=== PATIENT | female | born 1950 | race Caucasian/White ===

== ENCOUNTER 2018-06-07 14:02 | Emergency (ER) | payer MEDICARE ==
[~2018-06-07 14:02] MED LIST: ISOVUE-370 76%-LOCM 1 ML ONE
[2018-06-07] MEDS ORDERED: Morphine 4 MG/ML VIAL ONE ×2 (14:40→15:54)
[2018-06-07] MEDS ORDERED: Ondansetron PF 4 MG/2 ML Vial ONE ×2 (14:41→15:54)
[2018-06-07 14:57] LABS: #Basophils 0.1 thou/uL (0.0-0.2); #Eosinphils 0.1 thou/uL (0.0-0.7); #Monocytes 0.6 thou/uL (0.11-0.59); #Neutrophils 11.5 thou/uL (1.40-6.50); %Basophils 0.4 % (0.0-1.0); %Eosinophils 0.5 % (0.0-10.0); %Lymphocytes 7.4 % (21.0-51.0); %Monocytes 4.1 % (0.0-10.0); %Neutrophils 87.5 % (42.0-75.0); Hemoglobin 15.3 g/dL (12.0-16.0); Mean Corpuscular HGB CONC 34.2 g/dL (32.0-36.0); Mean Corpuscular Hemoglobin 32.6 pg (27.0-31.0); Mean Corpuscular Volume 95.3 fL (78.0-98.0); Mean Platelet Volume 7.2 fL (7.4-10.4); Platelet Count 335 thou/uL (130-400); RBC Distribution Width 11.6 % (11.5-14.5); White Blood Cell (WBC) Count 13.2 thou/uL (4.8-10.8)
[2018-06-07 15:15] LABS: ALT (SGPT) 21 U/L (8-55); AST (SGOT) 29 U/L (5-34); Albumin 4.9 g/dL (3.4-4.8); Alkaline Phosphatase 99 U/L (40-150); Anion Gap 16 mmol/L (10-20); BUN (Urea Nitrogen) 17 mg/dL (9.8-20.1); Bilirubin, Total 0.8 mg/dL (0.2-1.2); Calc. Creatinine Clearance 0 mL/min (70-130); Calcium 9.9 mg/dL (7.8-10.44); Carbon Dioxide 26 mmol/L (23-31); Chloride 95 mmol/L (98-107); Estimated GFR-MDRD 61; Globulin 2.6 g/dL (2.4-3.5); Glucose 183 mg/dL (80-115); Lipase 23 U/L (8-78); Potassium 3.2 mmol/L (3.5-5.1); Protein, Total 7.5 g/dL (6.0-8.3); Sodium 134 mmol/L (136-145)
--- NOTE | 2018-06-07 15:48 | CT ---
FContrast-enhanced CT images abdomen and pelvis. HISTORY: Epigastric pain with history of colitis. The lung bases are unremarkable. No evidence of free intraperitoneal air seen. The liver and spleen are unremarkable. The gallbladder and pancreas unremarkable. Adrenal glands unremarkable. Cortical cyst seen in the right kidney. No dilated loops of small bowel seen. No evidence of periaortic lymphadenopathy seen. The celiac artery, superior mesenteric artery, inferior mesenteric artery as well as splenic veins an d superior mesenteric veins are patent. A moderate size hiatal hernia is present. Levoscoliosis is present in the lumbar spine. Multilevel lumbar facet degenerative changes and mid and lower lumbar spinal stenosis seen. Colonic diverticulosis is present. There is some mucosal thickening of the transverse and descending colon compatible with changes of colitis. IMPRESSION: hiatal hernia.
[2018-06-07 16:36] LABS: Bilirubin Negative (Negative); Blood, Urine Negative (Negative); Clarity CLEAR (Clear); Glucose, Urine (Dipstick) 250 mg/dL (Negative); Leukocyte Negative (Negative); Nitrite Negative (Negative); Protein, Urine (Dipstick) Trace mg/dL (Neg-Trace); Specific Gravity, Urine 1.018 (1.002-1.036); Urobilinogen 0.2 mg/dL (0.2-1.0)
[2018-06-07 17:13] LABS: Bacteria/HPF None Seen HPF (None Seen); Hyaline Casts/LPF NONE SEEN LPF (0-3 Hyaline); RBC/HPF None Seen HPF (0-3); Squamous Epithelial 0-3 HPF (0-3); WBC/HPF None Seen HPF (0-3)
[2018-06-07] MEDS ORDERED: Ketorolac Tromethamine 30 MG/ML VIAL ONE (17:49)
[2018-06-07] MEDS ORDERED: Ondansetron ODT 4 MG TAB ONE (18:16)
== END 2018-06-07 18:16 | disposition home or self-care (01) ==
LOC: ERS 14:02
DX: K52.9 Noninfective gastroenteritis and colitis, unspecified (principal); I10 Essential (primary) hypertension; F32.9 Major depressive disorder, single episode, unspecified; Z79.899 Other long term (current) drug therapy
CPT/HCPCS: 74177; 80053; 81001; 83690; 84484; 85025; 93005; 96361; 96374; 96375; 96376; J1885; J2270; J2405; Q0162; Q9966

== ENCOUNTER 2018-08-21 16:21 | Inpatient (IN) | payer MEDICARE ==
[2018-08-21 16:46] LABS: Bilirubin Negative (Negative); Blood, Urine Negative (Negative); Clarity CLEAR (Clear); Glucose, Urine (Dipstick) Negative (Negative); Leukocyte Negative (Negative); Nitrite Negative (Negative); Protein, Urine (Dipstick) 100 mg/dL (Neg-Trace); Specific Gravity, Urine 1.015 (1.002-1.036); Urobilinogen 0.2 mg/dL (0.2-1.0); pH, Urine 6.5 (5.0-9.0)
[2018-08-21 16:49] LABS: Bacteria/HPF None Seen HPF (None Seen); Hyaline Casts/LPF 0-3 HYALINE CAST LPF (0-3 Hyaline); Squamous Epithelial 0-3 HPF (0-3); WBC/HPF 0-3 HPF (0-3)
[2018-08-21] MEDS ORDERED: Morphine 4 MG/ML VIAL ONE (17:25)
[2018-08-21] MEDS ORDERED: Ondansetron PF 4 MG/2 ML Vial ONE (17:25)
[2018-08-21] MEDS ORDERED: Labetalol HCl 100 MG/20 ML VIAL ONE ×2 (17:35→20:16)
[2018-08-21] MEDS ORDERED: Metoclopramide HCl 10 MG/2 ML VIAL ONE (17:35)
[2018-08-21 17:40] LABS: #Basophils 0.1 thou/uL (0.0-0.2); #Eosinphils 0.6 thou/uL (0.0-0.7); #Monocytes 0.8 thou/uL (0.11-0.59); #Neutrophils 10.5 thou/uL (1.40-6.50); %Basophils 0.8 % (0.0-1.0); %Eosinophils 4.5 % (0.0-10.0); %Lymphocytes 14.2 % (21.0-51.0); %Monocytes 5.5 % (0.0-10.0); Hemoglobin 15.9 g/dL (12.0-16.0); Mean Corpuscular HGB CONC 33.5 g/dL (32.0-36.0); Mean Corpuscular Hemoglobin 31.8 pg (27.0-31.0); Mean Corpuscular Volume 94.8 fL (78.0-98.0); Mean Platelet Volume 9.3 fL (7.4-10.4); Platelet Count 257 thou/uL (130-400); RBC Distribution Width 12.3 % (11.5-14.5); Red Blood Cell (RBC) Count 5.01 mill/uL (4.20-5.40)
[2018-08-21] MEDS ORDERED: Nitroglycerin 2% Ointment 1 INCH/1 GM Packet ONE (18:40)
[2018-08-21] MEDS ORDERED: Promethazine HCl 25 MG/ML VIAL ONE (18:40)
[2018-08-21 19:31] LABS: ALT (SGPT) 26 U/L (8-55); AST (SGOT) 34 U/L (5-34); Albumin 4.7 g/dL (3.4-4.8); Alkaline Phosphatase 100 U/L (40-150); Anion Gap 13 mmol/L (10-20); BUN (Urea Nitrogen) 13 mg/dL (9.8-20.1); Bilirubin, Total 0.5 mg/dL (0.2-1.2); Calc. Creatinine Clearance 0 mL/min (70-130); Calcium 9.5 mg/dL (7.8-10.44); Carbon Dioxide 24 mmol/L (23-31); Chloride 105 mmol/L (98-107); Estimated GFR-MDRD 70; Globulin 2.8 g/dL (2.4-3.5); Glucose 142 mg/dL (80-115); Lipase 23 U/L (8-78); Potassium 3.3 mmol/L (3.5-5.1); Protein, Total 7.5 g/dL (6.0-8.3); Sodium 139 mmol/L (136-145)
--- NOTE | 2018-08-21 20:12 | CT ---
CT ANGIO OF CHEST PERFORMED WITH INTRAVENOUS CONTRAST ENHANCEMENT WITH 3D RECONSTRUCTIONS: 08/21/18 HISTORY: Shortness of breath. Patient has been previously diagnosed with colitis. COMPARISON: CT angio of the chest of 08/27/[address] of the abdomen and pelvis dated 06/26/18. The lungs are clear of any infiltrative process. No pulmonary nodules or pleural effusions identified . Thoracic aorta is normal in caliber. There is good pulmonary artery opacification and no CT evidence for pulmonary embolus. There is a hiatal hernia demonstrated. Stomach is distended with fluid. Hypodensity involving the upp er pole of the right kidney compatible with a cyst. Visualized portions of the colon is not distended . Incidental note is made of bilateral breast implant ruptures. IMPRESSION: No CT evidence for pulmonary embolus. POS: [facility]
[2018-08-21] MEDS ORDERED: Sodium Chloride 0.9% 1,000 ML IV SCH (22:30)
[2018-08-21] MEDS ORDERED: Lisinopril 20 MG TAB PO SCH (23:30)
[2018-08-21] MEDS: hydrALAZINE 20 MG/ML VIAL SLOW IVP PRN (23:46)
[2018-08-22] MEDS: NS 0.9% w/ 20 MEQ KCL 1,000 ML/1,000 ML BAG IV SCH ×2 (00:08→13:02)
[2018-08-22] MEDS: Ondansetron PF 4 MG/2 ML Vial IVP PRN (00:55)
[2018-08-22 01:07] LABS: Troponin I 0.016 ng/mL (< 0.028)
[2018-08-22] MEDS ORDERED: Amlodipine 10 MG TAB PO SCH (01:30)
--- NOTE | 2018-08-22 02:23 | HP ---
CHIEF COMPLAINT: Nausea and vomiting. HISTORY OF PRESENT ILLNESS: The patient is 67-year-old female with a history of hypertension, who presents to the hospital with complaints of nausea and vomiting x1 day. The patient stated that she was in her normal state of health. However, after picking up her from the hospital, she went to [facility] and had 2 tacos and about 40 minutes later, started having significant bouts of nausea and vomiting. The patient also complained of abdominal pain. Denies any diarrhea. The patient states that this has happened to her in the past and that has caused her to have multiple hospital admissions. The patient stated that her last admission was in June for the similar reasons. The patient denies any fevers or chills. The patient states that she normally goes to the bathroom on a regular basis; however, for the past few weeks, she has not been very regular. The patient has never followed up with a senior manager asset protection and has been told that she possibly might have irritable bowel syndrome by her primary. PAST MEDICAL HISTORY: As of the following; 1. Hypertension. 2. She also has dyslipidemia and she has not taken her antihypertensives for the past couple of weeks. PAST SURGICAL HISTORY: She has had a history of breast augmentation and rhinoplasty. She has also had a rupture of the right breast implant. FAMILY HISTORY: Significant for father from [place] at age of 53. Sister at 68 from heart disease. SOCIAL HISTORY: She denies any alcohol use, tobacco use, smoking history. She is a full code. Lives with her . ALLERGIES: SHE HAS NO KNOWN DRUG ALLERGIES. MEDICATIONS: She takes lisinopril 20 mg daily. REVIEW OF SYSTEMS: All negative except the ones mentioned above in the HPI. PHYSICAL EXAMINATION: VITAL SIGNS: As of the following; temperature 97.7, heart rate 66, blood pressure of 195/93, respirations 16, oxygen saturation 97% on room air. GENERAL: She is awake, alert, and oriented x3. Does not appear in any distress. CV: S1 and S2 present. No murmurs, rubs, or gallops. HEENT: Normocephalic, atraumatic. No lymphadenopathy noted. Pupils are equal and reactive to light. LUNGS: Clear to auscultation. No rhonchi or wheezes noted. ABDOMEN: Soft. Bowel sounds are present x2. Mild pain upon palpation all over the abdominal area. EXTREMITIES: No edema. Pedal pulses are present x2. NEUROVASCULAR: No focal deficits noted. SKIN: No cuts, lesions, or bruises noted. LABORATORY RESULTS: WBCs of 14.0, hemoglobin of 15.9, hematocrit of 47.5, platelets of 257. Chemistry; sodium of 139, potassium of 3.3, BUN of 13, creatinine of 0.82, glucose of 142. Her troponin x3 were negative. Lipase was normal at 23. She did undergo a CTA which did not indicate any pulmonary embolism. She recently had a CT of abdomen and pelvis in June of 2018, which just indicated hiatal hernia and hepatic and renal cysts and no appendicitis, and she has an ovarian cyst, and no calcified gall gallstones were seen at that exam. ASSESSMENT AND PLAN: The patient is a very pleasant 67-year-old female who presents to the hospital, complains of abdominal pain, nausea, and vomiting. 1. Nausea, vomiting, and abdominal pain. Could be secondary to possible food related since she recently had [place] and started having these symptoms after. Her lipase is completely normal, could not be pancreatitis. I will go ahead and get a right upper quadrant ultrasound for further evaluation of her gallbladder. I will also put her on some Pepcid. The patient has abdominal pain all over. She would benefit from a GI followup as an outpatient versus if her symptoms do not improve, she may require endoscopy while in-house. Her CTA was negative for any pulmonary embolism. 2. Hypertension, uncontrolled. We will start the patient on p.r.n. and also I will start her back on her home dose of medications. 3. Deep venous thrombosis prophylaxis. We will put the patient on some sequential compression devices. 4. Hypokalemia. We will replace the potassium. Job ID: [id number]
[2018-08-22] MEDS ORDERED: Nitroglycerin 0.4 MG TAB (25 Tab Bottle) SL SCH (03:45)
[2018-08-22 05:23] LABS: #Lymphocytes 0.5 thou/uL (1.20-3.40); #Monocytes 0.4 thou/uL (0.11-0.59); #Neutrophils 13.4 thou/uL (1.40-6.50); %Basophils 0.1 % (0.0-1.0); %Eosinophils 0.3 % (0.0-10.0); %Lymphocytes 3.6 % (21.0-51.0); Hemoglobin 15.3 g/dL (12.0-16.0); Mean Corpuscular HGB CONC 32.8 g/dL (32.0-36.0); Mean Corpuscular Hemoglobin 31.7 pg (27.0-31.0); Mean Corpuscular Volume 96.8 fL (78.0-98.0); Mean Platelet Volume 9.6 fL (7.4-10.4); Platelet Count 255 thou/uL (130-400); RBC Distribution Width 12.3 % (11.5-14.5); Red Blood Cell (RBC) Count 4.83 mill/uL (4.20-5.40); White Blood Cell (WBC) Count 14.4 thou/uL (4.8-10.8)
[2018-08-22] MEDS: hydrALAZINE 20 MG/ML VIAL SLOW IVP PRN ×2 (05:27→19:59)
[2018-08-22 05:43] LABS: Hemoglobin A1c 5.5 % (4.0-6.0)
[2018-08-22 05:49] LABS: Anion Gap 15 mmol/L (10-20); BUN (Urea Nitrogen) 14 mg/dL (9.8-20.1); Calc. Creatinine Clearance 0 mL/min (70-130); Calcium 9.9 mg/dL (7.8-10.44); Carbon Dioxide 21 mmol/L (23-31); Chloride 104 mmol/L (98-107); Estimated GFR-MDRD 70; Glucose 201 mg/dL (80-115); Potassium 3.5 mmol/L (3.5-5.1); Sodium 136 mmol/L (136-145)
--- NOTE | 2018-08-22 07:02 | ULT ---
GALLBLADDER ULTRASOUND: INDICATIONS: Nausea. Vomiting. FINDINGS: Small hypoechoic focus within the hepatic parenchyma is present, less than 1 cm, too small to definit ively characterize. There is an exophytic cyst of the adjacent right kidney. No acute gallbladder pathology. Roque sign is reported as negative. The common duct is nondilated, visualized at 3 mm. IMPRESSION: No acute gallbladder pathology. POS: [facility]
[2018-08-22] MEDS: Heparin 5,000 UNITS/ML VIAL SC SCH ×3 (08:45→20:00)
[2018-08-22] MEDS: Lisinopril 20 MG TAB PO SCH (08:45)
[2018-08-22] MEDS: Mag-Al 1200 mg/1200 mg/30 ML UDCUP PO PRN ×3 (08:50→19:58)
[2018-08-22] MEDS ORDERED: Lisinopril 20 MG TAB PO SCH (09:00)
[2018-08-22] MEDS ORDERED: Amlodipine 5 MG TAB PO SCH (10:00)
[2018-08-22] MEDS ORDERED: Metoprolol Tartrate 25 MG TAB PO SCH (10:30)
[2018-08-22 10:35] LABS: Iron 108 ug/dL (50-170); Iron Binding Capacity, Total 390 mcg/dL (265-497)
[2018-08-22 10:43] LABS: Amphetamine Not Detected (NotDetected); Barbiturates Screen Not Detected (NotDetected); Benzodiazepine Screen Not Detected (NotDetected); Cocaine Metabolite Screen Not Detected (NotDetected); Medtox Control Line Valid? VALID (VALID); Medtox Reader # READER 4; Methadone Not Detected (NotDetected); Methamphetamine Not Detected (NotDetected); Opiate Screen Not Detected (NotDetected); Oxycodone Screen Not Detected (NotDetected); Phencyclidine (PCP) Not Detected (NotDetected); THC/Cannabinoid Screen Detected (NotDetected); Tricyclic Screen Not Detected (NotDetected)
--- NOTE | 2018-08-22 13:38 | PDOC.PN ---
- Subjective Encounter Start Date: 08/22/18 Encounter Start Time: 09:00 Subjective: Patient examined, denies current abdominal pain, does reports some -: nausea. Denies any vomiting since yesterday. Reports diffuse intermittent -: abdominal pain for several months. - Objective Resuscitation Status - Order Detail: 08/21/18 21:49 Resuscitation Status Routine Resuscitation Status: FULL: Full Resuscitation Vital Signs & Weight: Vital Signs (12 hours) Temp Pulse Resp BP BP Pulse Ox 08/22/18 10:46 98.7 F 120 H 15 173/81 H 95 08/22/18 08:45 180/86 H 08/22/18 07:18 98.1 F 107 H 20 180/86 H 94 L 08/22/18 06:17 107 H 166/74 H 08/22/18 05:27 96 191/86 H 08/22/18 04:08 95 196/93 H 08/22/18 03:37 98.2 F 90 16 201/92 H 08/22/18 01:49 90 206/93 H Weight Admit Weight 61.462 kg I&O: 08/21/18 08/22/18 08/23/18 06:59 06:59 06:59 Intake Total 634 Balance 634 Result Diagrams: 08/22/18 04:58 08/22/18 04:58 Phys Exam - Physical Examination HEENT: PERRLA, moist MMs Neck: no nodes, no JVD Respiratory: clear to auscultation bilateral Cardiovascular: RRR, no significant murmur Gastrointestinal: soft, non-tender Musculoskeletal: no edema, pulses present Neurological: non-focal, normal sensation, moves all 4 limbs Lymphatic: no nodes Psychiatric: normal affect, A&O x 3 Skin: no rash, normal turgor Dx/Plan (1) Nausea & vomiting Code(s): R11.2 - NAUSEA WITH VOMITING, UNSPECIFIED Status: Acute (2) Abdominal pain Code(s): R10.9 - UNSPECIFIED ABDOMINAL PAIN Status: Acute (3) Tachycardia Code(s): R00.0 - TACHYCARDIA, UNSPECIFIED Status: Acute (4) Hypertension Code(s): I10 - ESSENTIAL (PRIMARY) HYPERTENSION Status: Acute - Plan cont current plan of care Added metopropol today, patient with HR in 120's with elevated BP -: Denied abdominal pain during exam, reports some nausea -: WBC =14 with no clear source. Added CT ABD/Pelvis scan -: Will continue IV fluids, anti-emetics, HTN meds -: Case discussed with Dr. Mujica * .
[2018-08-22 17:24] VITALS: BMI 24.8
[2018-08-22] MEDS: Metoprolol Tartrate 25 MG TAB PO SCH (20:05)
--- NOTE | 2018-08-22 20:41 | CT ---
CT OF ABDOMEN AND PELVIS PERFORMED WITH CONTRAST ENHANCEMENT: 08/22/18 HISTORY: Abdominal pain with nausea and vomiting x5 days. COMPARISON: A 06/26/18 study. Bilateral ruptured breast implants are demonstrated. There is some atelectatic changes in the lung ba ses. The liver shows a tiny hyperdensity in the right lobe probably related to a tiny cyst stable. The spl een is within normal limits of size. Hiatal hernia is again noted. The pancreas shows no mass or duct al dilatation. Gallbladder is mildly distended. There is some increased attenuation of the gallbladde r consistent with the previous CT angio of the chest. Right and left adrenal glands are normal. An upper pole right renal cyst measuring 2.5 cm is stable. No obstruction of either kidney. No significant periaortic or mesenteric lymphadenopathy. There is mild amount of stool throughout the colon. There is some minimal diverticulosis noted. No in flammatory process. CT OF PELVIS PERFORMED WITH CONTRAST ENHANCEMENT: Stable appearance to a small right ovarian cyst. Moderate amount of stool is seen within the colon. T he appendix is normal in appearance. IMPRESSION: 1. Hiatal hernia. 2. Moderate amount of stool within the colon suggesting constipation. 3. Normal appendix. 4. Stable right ovarian cyst measuring approximately 1.5 cm. 5. Bibasilar atelectasis. POS: [facility]
[2018-08-23] MEDS: NS 0.9% w/ 20 MEQ KCL 1,000 ML/1,000 ML BAG IV SCH ×2 (03:55→14:30)
[2018-08-23] MEDS: Mag-Al 1200 mg/1200 mg/30 ML UDCUP PO PRN ×3 (07:18→18:06)
[2018-08-23] MEDS: Amlodipine 5 MG TAB PO SCH (08:16)
[2018-08-23] MEDS: Metoprolol Tartrate 25 MG TAB PO SCH (08:17)
[2018-08-23] MEDS: Lisinopril 20 MG TAB PO SCH (08:17)
[2018-08-23] MEDS: Heparin 5,000 UNITS/ML VIAL SC SCH ×2 (08:18→15:19)
--- NOTE | 2018-08-23 13:16 | CON ---
DATE OF CONSULTATION: 08/23/2018 INDICATION FOR CONSULTATION: A 67-year-old female with atrial flutter. HISTORY OF PRESENT ILLNESS: This is a very pleasant 67-year-old female, who was admitted with nausea and vomiting x1 day after she had eaten at a local restaurant here a [employer]. She does complain of epigastric pain. She does have what appears to be a history of a hiatal hernia. She did have a negative stress test in 2017. She does have a history of hypertension and hypercholesterolemia. She denies any tobacco abuse or diabetes. She does have some family history for heart disease. Her father had myocardial infarction at age 53. Her mother at age 68 from some type of heart disease. Other than that, she denies any history of having heart disease in the past, but when she was admitted, she was noted to be in atrial flutter with a rapid ventricular response. She has some nonspecific EKG changes, but denied chest pain. PAST MEDICAL HISTORY: Significant for hypertension, dyslipidemia, breast augmentation, and also a right breast implant rupture. She has also had a rhinoplasty performed. Apparently has a hiatal hernia. She has a hepatic renal and ovarian cyst. She has a history of scoliosis. SOCIAL HISTORY: She is . She has no alcohol or tobacco abuse. FAMILY HISTORY: As noted above. ALLERGIES: NONE. MEDICATIONS: Prior to admission included lisinopril. Her medications at this time include; 1. Amlodipine. 2. She has been given subcu heparin. 3. Also lisinopril. 4. Metoprolol 25 mg b.i.d. 5. Tylenol. 6. Aluminum. 7. Magnesium 30 mg p.o. q.4 hours p.r.n. for nausea and vomiting. 8. Other p.r.n. medications. REVIEW OF SYSTEMS: A 12-point review of systems, she mainly complains of abdominal pain, some nausea and vomiting. Otherwise, 12-point review of systems unremarkable except as noted in history of present illness. PHYSICAL EXAMINATION: GENERAL: Reveals a well-developed and well-nourished female. VITAL SIGNS: Blood pressure 137/98 and had previously been 162/86, heart rate was 96 and regular. At this time, she has had some bouts of atrial flutter, but then converts back to sinus rhythm. She did have atrial flutter with rapid ventricular response when she arrived earlier in the emergency room yesterday. Respiratory rate is 20. She is afebrile. HEENT: Shows the head to be normocephalic and atraumatic. Carotid pulses are present. There are no bruits. CHEST: Clear to auscultation. No rales, rhonchi, or wheezing. CARDIOVASCULAR: Reveals a regular rate and rhythm at this time with normal S1 and S2. There is no S3 or S4. There were no significant murmurs, heaves, thrills, bruits, or rubs. ABDOMEN: Soft. She does have some tenderness in the epigastric area. There were no palpable masses. She does have breast implants. The left breast being significantly larger than the right and appears to have some fluid around the capsule. Abdominal exam is unremarkable. EXTREMITIES: No clubbing, cyanosis, or edema. Pedal pulses are present. NEUROLOGIC: The patient appears to be fully intact. SKIN: Warm and dry. LABORATORY DATA: EKG reveals atrial flutter. There were no acute ST-segment changes noted with the tachycardia when she had the atrial flutter when she arrived in the emergency room, at which time the heart rate was 149 beats per minute. She did have some nonspecific EKG changes, but did not have any chest pain associated with that, EKG was from this morning at 7:15. The EKG when she was originally in the emergency room showed a normal sinus rhythm with no acute changes. The atrial flutter, please note was from today at 7:17 this morning. Since that time, she has converted back to her sinus rhythm. Laboratory data shows a potassium of 3.5, sodium was 136, BUN of 14, and creatinine 0.82. WBC of 14.4, hemoglobin 15.3, and platelet count was 255,000. Cardiac enzymes are negative. Abdominal ultrasound was also unremarkable. IMPRESSION AND PLAN: 1. Atrial flutter with a rapid ventricular response. We will ask for an electrophysiological evaluation for possible ablation of the atrial flutter. We will also obtain an echocardiogram for evaluation of left ventricular function, chamber dimensions, and valvar status. 2. History of hypertension. This appears to be well controlled on the present medications, but continue. We would agree with the present medications of lisinopril as well as amlodipine and metoprolol. This may also decrease her risk of her rapid heart rate with the atrial flutter. Further decisions about atrial flutter will be by the pharmacy scheduler when he visits with the patient today or tomorrow. Otherwise, from a cardiac standpoint, she appears to be stable. We will await the results of the echocardiogram. Also, she did have a negative stress test in 2017 and she denies any chest pain. Job ID: [id number]
--- NOTE | 2018-08-23 14:57 | PDOC.PN ---
- Subjective Encounter Start Date: 08/23/18 Encounter Start Time: 07:20 Pt seen for followup re: atrial flutter. Says she feels better today. - Objective Resuscitation Status - Order Detail: 08/21/18 21:49 Resuscitation Status Routine Resuscitation Status: FULL: Full Resuscitation MAR Reviewed: Yes Vital Signs & Weight: Vital Signs (12 hours) Temp Pulse Resp BP BP Pulse Ox 08/23/18 13:27 96.1 F L 78 18 179/90 H 08/23/18 08:17 163/86 H 08/23/18 08:16 96 163/86 H 08/23/18 07:35 98 08/23/18 07:15 97.0 F L 143 H 20 137/98 H 97 08/23/18 04:00 97.8 F 89 20 175/83 H 97 Weight Admit Weight 135 lb 8 oz Weight 135 lb 9.6 oz I&O: 08/22/18 08/23/18 08/24/18 06:59 06:59 06:59 Intake Total 569 501 4212 Output Total 400 Balance 634 300 940 Result Diagrams: 08/22/18 04:58 08/22/18 04:58 EKG Reviewed by me: Yes (Tele: NSR, runs of kimmy chilel) Phys Exam - Physical Examination Constitutional: NAD HEENT: moist MMs Neck: supple Respiratory: clear to auscultation bilateral Cardiovascular: RRR Gastrointestinal: soft Neurological: moves all 4 limbs Psychiatric: normal affect Dx/Plan (1) Atrial flutter Code(s): I48.92 - UNSPECIFIED ATRIAL FLUTTER Status: Acute Comment: pt converted to sinus rhythm (2) Nausea & vomiting Code(s): R11.2 - NAUSEA WITH VOMITING, UNSPECIFIED Status: Acute Comment: Improved (3) Hypertension Code(s): I10 - ESSENTIAL (PRIMARY) HYPERTENSION Status: Chronic Comment: BP still high, continue lisinopril, metoprolol and PRN hydralazine - Plan * . Review of Systems - Review of Systems Respiratory: negative: Cough, Shortness of Breath, SOB with Excertion, Pleuritic Pain, Wheezing Cardiovascular: negative: chest pain, palpitations, orthopnea, paroxysmal nocturnal dyspnea, edema, light headedness - Medications/Allergies Allergies/Adverse Reactions: Allergies Allergy/AdvReac Type Severity Reaction Status Date / Time No Known Allergies Allergy Verified 08/22/18 01:13 Medications: Current Medications Acetaminophen (Tylenol) 650 mg PO Q4H PRN PRN Reason: Headache/Fever/Mild Pain (1-3) Al Hydroxide/Mg Hydroxide (Maalox) 30 ml PO Q4H PRN PRN Reason: Heartburn or Indigestion Last Admin: 08/23/18 13:32 Dose: 30 ml Amlodipine Besylate (Norvasc) 5 mg PO DAILY [facility] Last Admin: 08/23/18 08:16 Dose: 5 mg Heparin Sodium (Porcine) (Heparin) 5,000 units SC TID [facility] Last Admin: 08/23/18 08:18 Dose: 5,000 units Hydralazine HCl (Apresoline) 5 mg SLOW IVP Q6H PRN PRN Reason: SBP Greater Than 170 Last Admin: 08/22/18 19:59 Dose: 5 mg Potassium Chloride/Sodium Chloride (Ns 0.9% W/ 20 Meq Kcl) 1,000 ml in 1,000 mls @ 75 mls/hr IV .[id number] [facility] Last Admin: 08/23/18 03:55 Dose: 1,000 mls Lisinopril (Zestril) 40 mg PO DAILY [facility] Last Admin: 08/23/18 08:17 Dose: 40 mg Metoprolol Tartrate (Lopressor) 25 mg PO BID [facility] Last Admin: 08/23/18 08:17 Dose: 25 mg Ondansetron HCl (Zofran) 4 mg IVP Q6H PRN PRN Reason: Nausea/Vomiting Last Admin: 08/22/18 00:55 Dose: 4 mg Sodium Chloride (Flush - Normal Saline) 10 ml IVF PRN PRN PRN Reason: Saline Flush
[2018-08-23] MEDS: Ondansetron PF 4 MG/2 ML Vial IVP PRN (15:52)
--- NOTE | 2018-08-23 18:48 | CON ---
DATE OF CONSULTATION: 08/23/2018 REASON FOR CONSULTATION: Atrial flutter. HISTORY OF PRESENT ILLNESS: Ms. Sellers is a 67-year-old woman, who presented to [facility] with complaints of severe epigastric pain with nausea and vomiting x1 day. She picked her up from the hospital went out to eat and approximately 40 minutes later had significant episodes of nausea and vomiting with severe abdominal pain. She has denied any diarrhea. Upon presentation, she was found to be in atrial flutter with variable AV conduction. She is not aware of any heart racing or palpitations. She has since been admitted to telemetry for further evaluation and management. She continues to have paroxysmal episodes of her atrial flutter, which she is asymptomatic with. She does endorse that she will occasionally feel heavy or strong heartbeats. She does not have any associated chest pain, dizziness, or passing out. She does not have a history of cardiac arrhythmias. REVIEW OF SYSTEMS: A 12-point review of systems is conducted, is negative except that listed above in HPI. PAST MEDICAL HISTORY: 1. Hypertension. 2. Bilateral breast augmentation, rhinoplasty, also a rupture of the right breast implant. 3. Dyslipidemia. FAMILY HISTORY: Father passed from an [place] at the age of 53. Sister passed at age 68 from some type of heart disease. SOCIAL HISTORY: Denies any alcohol, tobacco, or illicit drug use. She is a full code. She lives with her . ALLERGIES: NO KNOWN DRUG ALLERGIES. MEDICATIONS: Home medication of lisinopril 20 mg daily. OBJECTIVE: VITAL SIGNS: Temperature 97 degrees Fahrenheit, pulse 78, blood pressure 163/86, respirations 18, and oxygen is 98% on room air. GENERAL: The patient is alert and oriented. Speech is clear. Affect is appropriate. She is in no apparent distress. Resting comfortably in bed during the exam. HEENT: She is normocephalic and atraumatic. Sclerae anicteric. Oral mucosa is moist and pink with somewhat poor dentition. NECK: Supple without jugular venous distention. LUNGS: Clear to auscultation. Respirations are even and nonlabored. There are no wheezes, crackles, or rhonchi. HEART: Heart rate is currently regularly regular with crisp S1 and S2. PMI is nondisplaced. ABDOMEN: Soft and nondistended. EXTREMITIES: Warm and dry to touch without clubbing, cyanosis, or edema. NEUROLOGIC: Grossly intact and nonfocal. Gait was not assessed, though she has been up ambulating to the bathroom independently today. DATABASE: Laboratory: WBC 14.4, hemoglobin 15.3, hematocrit 46.7, platelet count 255. Chemistry; potassium 3.5, , creatinine 0.82. Troponins negative. Lipase is within normal limits. Urinalysis was negative. Toxicology was positive for cannabinoids. Echocardiogram has been performed, but not read at this time. Telemetry and EKGs are all personally reviewed, currently show normal sinus rhythm. A 12-lead from 08/23 at 7:17 a.m. shows atrial flutter with variable AV conduction at a rate of 150 beats per minute. QRS is narrow at approximately 80 milliseconds. She has had paroxysmal episodes of this variable flutter seen on telemetry as well. IMPRESSION: 1. Atrial flutter with rapid ventricular response, paroxysmal, newly diagnosed. 2. CHADS-VASc score of 3 on the basis of female gender, advancing age, and hypertension. 3. Persistent nausea. 4. Hypertension. 5. Leukocytosis, unknown etiology. 6. Hypokalemia. PLAN AND RECOMMENDATIONS: Ms. Sellers appears to have newly diagnosed paroxysmal atrial flutter. Review of EKGs and telemetry suggests that this is likely typical or CTI dependent atrial flutter in origin. We discussed treatment options for atrial arrhythmias including rate control, antiarrhythmic therapy, and ablation therapy. My recommendation for her CTI dependent flutter is to proceed with ablation after medical stabilization. Hence the high rate of success with eliminating CTI dependent flutter circuit primary ablation instead of antiarrhythmic would be reasonable with low chance of recurrence with this arrhythmia albeit non isthmus dependent flutters or atrial fibrillation is still a possibility. Her abdominal pain has subsided somewhat today. She does continue to have some nausea and having unexplained leukocytosis. She has a CT of the abdomen and pelvis ordered today. I will work to get her scheduled for this ablation as outpt after her Leukocytosis and abdominal symptoms resolve. Also with CHADS-VASc score of 3. Oral anticoagulation iwill be held hence vey short paroxisms of atrial flutter is observed and her symptoms are concenring for PUD. Thank you for allowing me to participate in the care of this patient. Job ID: [id number] [id number]
[2018-08-24] MEDS: Heparin 5,000 UNITS/ML VIAL SC SCH ×4 (09:10→15:41)
[2018-08-24] MEDS: Metoprolol Tartrate 25 MG TAB PO SCH ×3 (09:10→10:20)
[2018-08-24] MEDS: Lisinopril 20 MG TAB PO SCH (09:11)
[2018-08-24] MEDS: Amlodipine 5 MG TAB PO SCH (09:11)
[2018-08-24] MEDS: Acetaminophen 325 MG TAB PO PRN ×2 (09:11→15:48)
[2018-08-24] MEDS: Mag-Al 1200 mg/1200 mg/30 ML UDCUP ONE ×4 (09:14→10:21)
--- NOTE | 2018-08-24 12:02 | PDOC.CTH ---
Cardiology Progress Note - Subjective The pt seen and examined. No overnight events. No cardiac complaints. - Objective Vital Signs Temp Pulse Resp BP Pulse Ox 08/24/18 11:28 98.1 F 66 18 144/79 H 98 Admit Weight 135 lb 8 oz Weight 135 lb 9.6 oz 08/23/18 08/24/18 08/25/18 06:59 06:59 06:59 Intake Total 300 2993 Output Total 2300 Balance 300 693 - Physical Examination General/Neuro: alert & oriented x3 Neck: no JVD present Lungs: CTA Heart: RRR Abdomen: soft Extremities: other: (No edema) - Telemetry Telemetry Rhythm: SR - Labs Result Diagrams: 08/22/18 04:58 08/22/18 04:58 Troponin/CKMB Troponin I 0.023 ng/mL (< 0.028) 08/23/18 08:15 - Assessment/Plan 1. Aflutter with typical or CTI dependent with RVR - remains in SR since yesterday; ASA 81 mg qd. Her episodes of flutter are not too long, after discussion with Dr. Martinez he feels that ASA will be sufficient. (CHADS-VASc score 3). He will be in touch with her in the next 2-3 weeks to schedule an ablation . If she has further tachycardia she should return to the ER.. and the ablation could be done sooner. 2. HTN - will increase Norvasc 5mg from qd to BID from today 3. ABD pain - stable MAR reviewed * Echo on 08/23/2018 with EF 55-60%, trace MR and TR Pt. seen and eval. by me. I agree with the A/P by the [employer]. chest clear. RRR. Review of Systems - Review of Systems Constitutional: reports: no symptoms reported EENTM: reports: no symptoms reported Respiratory: reports: no symptoms reported Cardiac (ROS): reports: no symptoms reported
[2018-08-24] MEDS ORDERED: Escitalopram Oxalate 20 mg Tablet PO SCH (13:45)
[2018-08-24] MEDS: Ondansetron PF 4 MG/2 ML Vial IVP PRN (15:41)
[2018-08-24 15:53] VITALS: BP 166/83; TEMP 98.2
--- NOTE | 2018-08-24 16:30 | PDOC.CTH ---
Cardiology Progress Note - Subjective EP PROGRESS NOTE: 08/24/18 Seen as follow up for newly diagnosed atrial flutter. No heart racing or palpitations. Still has nausea and stomach pain. No vomiting. - Objective Vital Signs Temp Pulse Resp BP Pulse Ox 08/24/18 15:50 98.2 F 77 18 166/83 H 99 08/24/18 11:28 98.1 F 66 18 144/79 H 98 Admit Weight 135 lb 8 oz Weight 135 lb 9.6 oz 08/23/18 08/24/18 08/25/18 06:59 06:59 06:59 Intake Total 300 2993 Output Total 2300 Balance 300 693 - Physical Examination General/Neuro: alert & oriented x3, NAD Neck: carotid US brisk, no JVD present Lungs: CTA, unlabored respirations Heart: PMI normal, RRR Abdomen: NT/ND, soft - Telemetry Telemetry Rhythm: SR - Labs Result Diagrams: 08/22/18 04:58 08/22/18 04:58 - Assessment/Plan 1. Atrial flutter -paroxysmal, extremely brief episodes -no further episodes since 08/23 AM when rapid flutter was seen with variable AV conduction (as fast as 190bpm) 2. CHADS2-VASC: 3 (age, female, HTN) - hold OAC for now. Will need Eliquis 5mg PO BID x at least 30 days post ablation 3. Nausea - slightly improved 4. Leukocytosis 5. Hypertension Would likely benefit from atrial flutter ablation in the future. With her ongoing GI symptoms and elevated WBC, we will allow her to recover and see her back in clinic with close follow up to arrange OP ablation. Continue metoprolol. Rhythm has been stable in SR for 24hrs now.
[2018-08-24] MEDS ORDERED: Apixaban 5 MG TAB PO SCH (21:00)
[2018-08-24] MEDS ORDERED: Amlodipine 5 MG TAB PO SCH (21:00)
--- NOTE | 2018-08-24 22:50 | DIS ---
DATE OF ADMISSION: 08/22/2018 DATE OF DISCHARGE: 08/24/2018 PRIMARY CARE PROVIDER: [facility] in [place]. DISCHARGE DIAGNOSES: 1. Atrial flutter. 2. Nausea and vomiting, likely secondary to viral gastroenteritis. CONSULTATIONS DURING THIS HOSPITALIZATION: Cardiology, Dr. Barclay and Electrophysiology, Dr. Martinez. CONDITION OF PATIENT ON THE DAY OF DISCHARGE: Stable. I assessed Ms. Sellers on the day of discharge. She denies any chest pain or shortness of breath. Vital signs are stable. S1 and S2 are heard, regular. Lungs are clear to auscultation bilaterally. DISCHARGE MEDICATIONS: 1. Lisinopril 20 mg daily. 2. Amlodipine 5 mg daily. 3. Lexapro 10 mg daily. 4. Lopressor 25 mg 2 times a day. HOSPITAL COURSE: Ms. Sellers is a pleasant 67-year-old lady, who was admitted to [facility] for intractable nausea and vomiting on August 21, 2018. Please refer to Dr. London's history and physical note dated August 22, 2018, for further details. CT scan of the abdomen and pelvis done at the time of admission showed a tiny liver cyst, stable, hiatal hernia, right renal cyst stable, and stable right ovarian cyst. She also had CT angiogram of the chest, which did not show any evidence for pulmonary embolism. She continued to improve clinically with antiemetics and IV fluids. She was found to be in atrial flutter. She was seen by Cardiology and Electrophysiology Services. She has been started on beta sharmila. Plan is for ablation as an outpatient. She also reported having depression. She reports being treated with antidepressants in the past. I am starting her on low-dose Lexapro and have advised her to follow up with her primary care provider for management of depression. Benefits, side effects, and risks of Lexapro were explained to her, and she expressed understanding. Many thanks for allowing me to participate in your patient's care. Please feel free to contact me with any questions or concerns. POST-DISCHARGE FOLLOWUP: With PCP. DISCHARGE DESTINATION: Home. TIME SPENT: Total amount of time spent coordinating this discharge: 32 minutes. Job ID: [id number] MTDD
[2018-08-25] MEDS ORDERED: Escitalopram Oxalate 10 mg Tablet PO SCH (09:00)
--- NOTE | 2018-08-25 09:24 | DIS ---
DATE OF ADMISSION: 08/22/2018 DATE OF DISCHARGE: 08/24/2018 ADDENDUM: Ms. Sellers's discharge medications have slightly changed after my previous dictation. Her discharge medications are, 1. Amlodipine 5 mg two times a day. 2. Aspirin 81 mg daily. 4. Lisinopril 20 mg daily. 5. Lopressor 25 mg two times a day. Please note patient is not being discharged on Lexapro. Apparently she was using fluoxetine prior to this admission. I advised her to follow up with her primary care provider for management of depression. Job ID: [id number] MTDD
--- NOTE | 2018-08-26 11:54 | EKG ---
Test Reason : Blood Pressure : / mmHG Vent. Rate : 067 BPM Atrial Rate : 067 BPM P-R Int : 150 ms QRS Dur : 080 ms QT Int : 454 ms P-R-T Axes : 065 036 049 degrees QTc Int : 479 ms Normal sinus rhythm Biatrial enlargement Nonspecific ST abnormality Abnormal ECG Confirmed by RICHARD LUO, NAVJOT Barros ([id number]), editor index IND[place] MCNALLY ([id number]) on 08/26/2018 11:54:47 AM Referred By: Confirmed By:NAVJOT RAMOS MD
== END 2018-08-24 17:13 | disposition home or self-care (01) | DRG 392 ==
LOC: ERS 16:21 → 2SW 23:13 → OBSVTOIN 08-22 17:16 → 2NO 08-22 19:15
PROVIDERS: ADMIT Internal Medicine; ATTEND Internal Medicine
DX: A08.4 Viral intestinal infection, unspecified (principal); I48.92 Unspecified atrial flutter; I10 Essential (primary) hypertension; E87.6 Hypokalemia; E78.00 Pure hypercholesterolemia, unspecified; I08.1 Rheumatic disorders of both mitral and tricuspid valves; F32.9 Major depressive disorder, single episode, unspecified; Z79.899 Other long term (current) drug therapy; Z98.82 Breast implant status; Z79.01 Long term (current) use of anticoagulants
CPT/HCPCS: 36415; 71275; 74177; 76705; 80048; 80053; 80306; 81003; 81015; 82728; 83036; 83540; 83550; 83690; 83880; 84484; 85025; 85379; 93005; 93010; 93306; J0360; J0500; J1644; J2270; J2405; J2550; J2765; J3480

== ENCOUNTER 2018-08-24 18:44 | Emergency (ER) | payer MEDICARE ==
--- NOTE | 2018-08-26 11:05 | EKG ---
Test Reason : Blood Pressure : / mmHG Vent. Rate : 130 BPM Atrial Rate : 322 BPM P-R Int : 000 ms QRS Dur : 076 ms QT Int : 342 ms P-R-T Axes : 000 021 091 degrees QTc Int : 503 ms Atrial flutter with variable A-V block Abnormal ECG Confirmed by HANK ENGLISH ([id number]), newspaper managing editor INDIA MCNALLY ([id number]) on 08/26/2018 11:05:40 AM Referred By: Confirmed By:HANK ENGLISH
== END 2018-08-24 19:42 | disposition home or self-care (01) ==
LOC: ERS 18:44
DX: I48.92 Unspecified atrial flutter (principal); I10 Essential (primary) hypertension; F32.9 Major depressive disorder, single episode, unspecified; Z79.899 Other long term (current) drug therapy

== ENCOUNTER 2018-08-28 06:20 | Emergency (ER) | payer MEDICARE ==
[2018-08-28] MEDS ORDERED: Metoprolol Tartrate 5 MG/5 ML VIAL ONE (06:56)
--- NOTE | 2018-08-28 07:43 | ULT ---
US Gallbladder RUQ: 08/28/2018 6:32 AM CLINICAL HISTORY: Right upper quadrant abdominal pain. STUDY: Limited right upper quadrant ultrasound of abdomen. COMPARISON: 08/22/2018 FINDINGS: Liver: Size: Normal. Echogenicity: Normal. Contour: Smooth. Mass: None. Bile ducts: No intrahepatic or extrahepatic biliary dilatation. Common bile duct measures 2 mm. Gallbladder: Normal. Pancreas: Head, body, and tail appear normal. Right kidney: No pelvicalyceal dilatation. Right kidney measuring 9.3 cm in length. 3.1 cm right kyree l cyst IMPRESSION: Right renal cyst
== END 2018-08-28 11:16 | disposition home or self-care (01) ==
LOC: ERS 06:20
DX: K85.90 Acute pancreatitis without necrosis or infection, unspecified (principal); I10 Essential (primary) hypertension; F32.9 Major depressive disorder, single episode, unspecified
CPT/HCPCS: 76705; 94760

== ENCOUNTER 2018-08-30 00:06 | Inpatient (IN) | payer MEDICARE ==
[2018-08-30 00:26] LABS: #Basophils 0.1 thou/uL (0.0-0.2); #Eosinphils 0.2 thou/uL (0.0-0.7); #Lymphocytes 1.9 thou/uL (1.20-3.40); #Monocytes 1.1 thou/uL (0.11-0.59); #Neutrophils 14.4 thou/uL (1.40-6.50); %Basophils 0.6 % (0.0-1.0); %Eosinophils 1.4 % (0.0-10.0); %Lymphocytes 10.6 % (21.0-51.0); %Monocytes 6.2 % (0.0-10.0); %Neutrophils 81.2 % (42.0-75.0); Hemoglobin 14.4 g/dL (12.0-16.0); Mean Corpuscular HGB CONC 33.6 g/dL (32.0-36.0); Mean Corpuscular Hemoglobin 31.4 pg (27.0-31.0); Mean Corpuscular Volume 93.5 fL (78.0-98.0); Mean Platelet Volume 7.4 fL (7.4-10.4); Platelet Count 390 thou/uL (130-400); RBC Distribution Width 12.3 % (11.5-14.5); Red Blood Cell (RBC) Count 4.58 mill/uL (4.20-5.40); White Blood Cell (WBC) Count 17.8 thou/uL (4.8-10.8)
[2018-08-30 00:47] LABS: ALT (SGPT) 35 U/L (8-55); AST (SGOT) 24 U/L (5-34); Albumin 4.9 g/dL (3.4-4.8); Alkaline Phosphatase 107 U/L (40-150); Anion Gap 18 mmol/L (10-20); BUN (Urea Nitrogen) 30 mg/dL (9.8-20.1); Bilirubin, Total 0.3 mg/dL (0.2-1.2); CK (CPK) 70 U/L (29-168); Calc. Creatinine Clearance 0 mL/min (70-130); Carbon Dioxide 23 mmol/L (23-31); Chloride 97 mmol/L (98-107); Estimated GFR-MDRD 32; Glucose 207 mg/dL (80-115); Potassium 3.8 mmol/L (3.5-5.1); Protein, Total 7.9 g/dL (6.0-8.3); Sodium 134 mmol/L (136-145)
[2018-08-30] MEDS ORDERED: Diltiazem 125 MG/25 ML ONE (00:55)
[2018-08-30] MEDS ORDERED: Diltiazem HCl 125 MG, Admixture Fee 1 EACH in Sodium Chloride 0.9% 100 ML IVPB SCH (01:15)
[2018-08-30 02:36] VITALS: BMI 24.0
[2018-08-30] MEDS ORDERED: Metoprolol Tartrate 5 MG/5 ML VIAL IVP SCH (03:15)
[2018-08-30] MEDS ORDERED: Cepastat Lozenges 1 LOZ PO PRN (03:37)
[2018-08-30] MEDS ORDERED: Ondansetron PF 4 MG/2 ML Vial IVP PRN (03:40)
[2018-08-30] MEDS ORDERED: Acetaminophen 325 MG TAB PO PRN (03:40)
[2018-08-30] MEDS ORDERED: Ondansetron ODT 4 MG TAB PO PRN (03:40)
[2018-08-30] MEDS ORDERED: Acetaminophen 650 MG Suppository PR PRN (03:40)
--- NOTE | 2018-08-30 07:49 | RAD ---
PORTABLE CHEST: HISTORY: High blood pressure. COMPARISON: 06/26/2018 FINDINGS: Heart size is within normal limits. There is linear atelectasis or scar in the lung bases. No focal infiltrative process. IMPRESSION: Linear atelectasis or scar in both lung bases. POS: [facility]
--- NOTE | 2018-08-30 08:23 | HP ---
PRIMARY CARE DOCTOR: The patient goes to [facility]. CODE STATUS: Full code. TIME OF EVALUATION: 4 a.m. CHIEF COMPLAINT: Palpitations. HISTORY OF PRESENT ILLNESS: This is a 67-year-old female patient with past medical history of hypertension, came to the hospital after having sudden onset of moderate palpitations that was very uncomfortable. No clear triggers, no alleviating factors. She was found to be in atrial fibrillation with RVR. For that reason, she has been placed in the hospital. As noted, the patient was not being compliant with her metoprolol when she was in home. No clear triggers. No alleviating factors. REVIEW OF SYSTEMS: CONSTITUTIONAL: No fever, chills, or generalized weakness. RESPIRATORY: No cough, sputum production, or shortness of breath. CARDIOVASCULAR: The patient has palpitation. No chest pain. GASTROINTESTINAL: No nausea. No vomiting, diarrhea, or abdominal pain. JOINT CREASER: No dizziness, headache, or feeling lightheaded. GENITOURINARY: No burning on urination. EXTREMITIES: No leg swelling. All other systems were reviewed and negative except for the findings mentioned above. PAST MEDICAL HISTORY: The patient has a history of hypertension, has a history of noncompliance, and history of atrial flutter. FAMILY HISTORY: Reviewed and noncontributory to current presentation. PAST SURGICAL HISTORY: The patient has a history of dilation and curettage, rhinoplasty, and breast augmentation. PSYCHIATRIC HISTORY: Includes depression. SOCIAL HISTORY: No alcohol. No drugs. No smoking history. KNOWN ALLERGIES: No known drug allergies. REPORTED MEDICATIONS: 1. Lisinopril. 2. Lexapro. 3. Aspirin. PHYSICAL EXAMINATION: VITAL SIGNS: On presentation; heart rate 171, blood pressure 186/135, respiratory rate was 17, oxygen saturation 98. GENERAL: The patient is alert, oriented, not in acute distress. HEENT: Eyes; normal conjunctivae. Moist oral mucosa. Anicteric. No JVD. RESPIRATORY: Bilateral air entry. No rales. No wheezes. Symmetric expansion. CARDIOVASCULAR: The patient has tachycardia with irregular rhythm. No murmurs. No gallop. No edema. ABDOMEN: Soft. Normal bowel sounds. MUSCULOSKELETAL: Baseline range of motion and strength. No tenderness. SKIN: Warm and intact. No pallor. No rash. No redness. Capillary refill seems to be intact. NEUROLOGIC: No evidence of any new focal weakness. Cranial nerves seems to be intact. PSYCH: The patient is in good mood. No anxiety. Optimal judgment. DIAGNOSTIC DATA: EKG was reviewed. The patient showed atrial flutter with some PVCs, ST depression, variable AV block, QT corrected 490. Radiology; the chest x-ray was negative. LABORATORY DATA: Labs are reviewed. The patient has white count 17.8, hemoglobin 14.4, MCV 93.5, platelet count 290. Chemistry; sodium 134, potassium 3.8, chloride 97, carbon dioxide 23, anion gap of 18, BUN 30, creatinine 1.6, GFR 32, glucose 207, calcium 10. LFTs were negative. Albumin 4.9. ASSESSMENT AND PLAN: The patient will be placed in the hospital with following medical problems. 1. Atrial fibrillation with RVR, the patient has been placed on Cardizem drip with a dose of 15, heart rate is still high. We have given Lopressor IV and the patient has converted back to sinus. We will consult Cardiology and then we will follow recommendations. 2. Acute kidney injury. The patient has a creatinine of 1.6 and previous admission was 0.8. We will hydrate with caution, monitor kidney function. If not improving, might need Nephrology for assistance with the patient. 3. Hyponatremia, sodium of 134. This is mild, no need for any acute intervention at this point. Monitor sodium and treat accordingly. 4. Leukocytosis with white count 17.8. No evidence of sepsis at this point. We will monitor . If any evidence of sepsis appears, we will start antibiotics. 5. History of noncompliance, advised to be compliant with medications. 6. Uncontrolled hypertension with systolic blood pressure 186 and diastolic 135 on presentation. Reconcile home medications. We will adjust as needed. 7. Deep venous thrombosis prophylaxis. Job ID: [id number]
[2018-08-30] MEDS: Lisinopril 20 MG TAB PO SCH (09:40)
[2018-08-30] MEDS: Amlodipine 5 MG TAB PO SCH ×2 (09:40→20:46)
[2018-08-30] MEDS: Aspirin 81 mg Enteric Coated Tablet PO SCH (09:41)
[2018-08-30] MEDS: Enoxaparin Sodium 30 MG/0.3 ML SYRINGE SC SCH (09:41)
[2018-08-30] MEDS: Metoprolol Tartrate 25 MG TAB PO SCH ×2 (09:41→20:47)
[2018-08-30] MEDS: Escitalopram Oxalate 10 mg Tablet PO SCH (09:41)
--- NOTE | 2018-08-30 10:37 | CON ---
DATE OF CONSULTATION: HISTORY OF PRESENT ILLNESS: Yenifer Sellers is a 67-year-old female, who was admitted for abdominal pain and transferred to [place]. She goes to see [facility] over there for problems. She was found to have elevated lipase, transferred with a diagnosis of pancreatitis. She denies any alcohol or tobacco abuse. Denies any substance abuse. She has been in and out of the hospital here numerous times. In fact, she was discharged recently where she had. On 08/24, extensive workup including CT of abdomen and pelvis, which were unremarkable. Her discharge diagnosis unclear what it was, but she was discharged home on amlodipine 5, aspirin 81, lisinopril 20, and lopressor 25 twice a day. It is felt to be she had atrial flutter. Nausea and vomiting secondary to gastroenteritis. PAST MEDICAL HISTORY: Additional extensive past medical history is outlined. Pertinent for SVT and hypertension. PAST SURGICAL HISTORY: None recently. MEDICATIONS: Chronic medications from home is outlined includin. Lopressor 25. 2. Lisinopril 20. 3. Lexapro 10. 4. Aspirin. 5. Amlodipine. SOCIAL HISTORY: Alcohol, none. Tobacco, none. REVIEW OF SYSTEMS: Ten-point negative. PHYSICAL EXAMINATION: GENERAL: She appears to be in no acute distress. VITAL SIGNS: Temperature 97, pulse 76, respiratory rate 23, and blood pressure 150/72. CHEST: Decreased breath sounds. No wheezing. CARDIAC: Normal S1 and S2. No gallops. ABDOMEN: No masses. LABORATORY DATA: Creatinine 1.6, BUN is 30. Lipase is slightly elevated. BNP is normal. White count 17,000. IMPRESSION AND PLAN: 1. Abdominal pain, elevated lipase, pancreatitis. 2. Hypertension with supraventricular tachycardia. Pulmonary is seeing while she is in MICU, nothing additional to offer at this stage. Continue supportive care, input from GI. This is a consultation note, 70 minutes, 50% direct patient care. Job ID: [id number]
[2018-08-30] MEDS ORDERED: Mag-Al Plus 1200 MG/1200 MG/120 MG/30 ML UDCUP PO PRN (10:47)
--- NOTE | 2018-08-30 12:56 | PDOC.PN ---
- Subjective Encounter Start Date: 08/30/18 Encounter Start Time: 11:00 Subjective: no c/o chest pain or palp -: has nausea and luq pain - Objective Resuscitation Status - Order Detail: 08/30/18 03:40 Resuscitation Status Routine Resuscitation Status: FULL: Full Resuscitation MAR Reviewed: Yes Vital Signs & Weight: Vital Signs (12 hours) Temp Pulse Ox 08/30/18 10:44 97.6 F 08/30/18 07:08 97.6 F 08/30/18 03:22 99.5 F 08/30/18 02:41 99 08/30/18 02:35 98.6 F Weight Weight 135 lb 8 oz Most Recent Monitor Data Heart Rate from ECG 76 NIBP 158/72 NIBP BP-Mean 100 Respiration from ECG 23 SpO2 100 I&O: 08/29/18 08/30/18 08/31/18 06:59 06:59 06:59 Intake Total 70 Output Total 700 200 Balance -630 -200 Result Diagrams: 08/30/18 00:16 08/30/18 00:16 Phys Exam - Physical Examination HEENT: PERRLA, moist MMs Neck: no JVD, supple Respiratory: no wheezing, no rales Cardiovascular: RRR, no significant murmur Gastrointestinal: soft, non-tender, positive bowel sounds Musculoskeletal: no edema, pulses present Neurological: non-focal, moves all 4 limbs Psychiatric: normal affect, A&O x 3 Dx/Plan (1) Atrial flutter Code(s): I48.92 - UNSPECIFIED ATRIAL FLUTTER Status: Resolved Comment: pt converted to sinus rhythm, recurrent (2) Abdominal pain Code(s): R10.9 - UNSPECIFIED ABDOMINAL PAIN Status: Acute Qualifiers: Abdominal location: left upper quadrant Qualified Code(s): R10.12 - Left upper quadrant pain (3) MEGAN (acute kidney injury) Code(s): N17.9 - ACUTE KIDNEY FAILURE, UNSPECIFIED Status: Acute (4) Depression Code(s): F32.9 - MAJOR DEPRESSIVE DISORDER, SINGLE EPISODE, UNSPECIFIED Status : Chronic Qualifiers: Depression Type: major depressive disorder Psychotic features: without psychotic features (5) Nausea & vomiting Code(s): R11.2 - NAUSEA WITH VOMITING, UNSPECIFIED Status: Acute Qualifiers: Vomiting type: unspecified (6) Hypertension Code(s): I10 - ESSENTIAL (PRIMARY) HYPERTENSION Status: Chronic Qualifiers: Hypertension type: essential hypertension Qualified Code(s): I10 - Essential (primary) hypertension - Plan elevated lipase likely due to nausea, prior 3 CT abd were -ve for pancreati -: -c abnormality with abd pain in the past -: GI consult, ?pud, will likely need anticoagulation -: consult for recurrent a.flutter, is on cardizem drip -: continue lopressor, asp, norvasc, lisinopril, protonix, lexapro * . watch for renal function, creatinine around 1.6 Review of Systems - Medications/Allergies Allergies/Adverse Reactions: Allergies Allergy/AdvReac Type Severity Reaction Status Date / Time No Known Allergies Allergy Verified 08/30/18 02:27 Medications: Current Medications Acetaminophen (Tylenol) 650 mg PO Q4H PRN PRN Reason: Headache/Fever/Mild Pain (1-3) Acetaminophen (Tylenol) 650 mg IN Q4H PRN PRN Reason: Headache/Fever/Mild Pain (1-3) Al Hydroxide/Mg Hydroxide (Maalox Plus) 30 ml PO DAILYPRN PRN PRN Reason: Heartburn or Indigestion Amlodipine Besylate (Norvasc) 5 mg PO BID [facility] Last Admin: 08/30/18 09:40 Dose: 5 mg Aspirin (Ecotrin) 81 mg PO DAILY [facility] Last Admin: 08/30/18 09:41 Dose: 81 mg Enoxaparin Sodium (Lovenox) 30 mg SC 0900 [facility] Last Admin: 08/30/18 09:41 Dose: 30 mg Escitalopram Oxalate (Lexapro) 10 mg PO DAILY [facility] Last Admin: 08/30/18 09:41 Dose: 10 mg Diltiazem HCl 125 mg/Miscellaneous Medication 1 each/ Sodium Chloride 125 mls @ 0 mls/hr IVPB INF [facility]; Protocol Last Admin: 08/30/18 11:24 Dose: 125 mls Lisinopril (Zestril) 20 mg PO DAILY [facility] Last Admin: 08/30/18 09:40 Dose: 20 mg Metoprolol Tartrate (Lopressor) 25 mg PO BID [facility] Last Admin: 08/30/18 09:41 Dose: 25 mg Ondansetron HCl (Zofran Odt) 4 mg PO Q6H PRN PRN Reason: Nausea/Vomiting Ondansetron HCl (Zofran) 4 mg IVP Q6H PRN PRN Reason: Nausea/Vomiting Pantoprazole Sodium (Protonix) 40 mg PO BID [facility]OR Pneumococcal 13-Valent Conj Vacc (Prevnar) 0.5 ml IM .ONCE ONE Stop: 08/31/18 09:01 Throat Lozenges (Cepastat Lozenges) 1 ximena PO Q2H PRN PRN Reason: Cough
--- NOTE | 2018-08-30 14:33 | PDOC.CTH ---
Cardiology Progress Note - Subjective EP PROGRESS NOTE: 08/30/18 Seen for atrial arrhythmias. Presented to ER for palpitations and abd pain. Found in atrial flutter with RVR. Given IV lopressor which converted her to SR. She was not taking her metoprolol at home. Today she is continues to have abd pain but no further heart racing or palpitations. - Objective Vital Signs Temp Pulse Ox 08/30/18 10:44 97.6 F 08/30/18 08:00 97 08/30/18 07:08 97.6 F 08/30/18 03:22 99.5 F 08/30/18 02:41 99 08/30/18 02:35 98.6 F Weight 135 lb 8 oz 08/29/18 08/30/18 08/31/18 06:59 06:59 06:59 Intake Total 70 Output Total 700 200 Balance -630 -200 - Physical Examination General/Neuro: alert & oriented x3, NAD Neck: carotid US brisk, no JVD present Lungs: CTA, unlabored respirations Heart: PMI normal, RRR Abdomen: NT/ND, soft - Telemetry Telemetry Rhythm: SR - Labs Result Diagrams: 08/30/18 00:16 08/30/18 00:16 Troponin/CKMB Troponin I Less than 0.010 ng/mL (< 0.028) 08/30/18 00:16 - Assessment/Plan 1. Atrial flutter vs coarse fibrillation with RVR - converted to SR after IV lopressor - remains in SR - not complaint with PO metoprolol that was recently started when she was dx with AF - starting multaq 400mg PO BID for suppression 2. Abdominal pain, persistent - possible ulcerative disease. consider GI consult/workup before starting OAC 3. CHADS2-VASC: at least 3 - OAC is indicated. 4. Leukocytosis - idiopathic at this point Could consider CTI flutter ablation for Tuesday if GI work up is negative. Will continue to follow.
[2018-08-30] MEDS ORDERED: Dicyclomine 10 MG CAP PO PRN (14:47)
[2018-08-30] MEDS ORDERED: GoLYTELY 4,000 ml Bottle PO SCH (15:45)
[2018-08-30] MEDS: Dronedarone HCl 400 MG TAB PO SCH (17:58)
--- NOTE | 2018-08-30 21:17 | CON ---
DATE OF CONSULTATION: 08/30/2018 REASON FOR CONSULTATION: Episodic left-sided abdominal pain. HISTORY OF PRESENT ILLNESS: Ms. Sellers is a 67-year-old female, who was admitted through the ER yesterday with new onset atrial fibrillation with rapid ventricular rate. She reports having an episodic abdominal pain since June of this year, which is over the last 2 months. The pain is localized to the left side of the abdomen and associated with eating. She learning to control the pain by eating less. She had been to the ER previously and was told to have diverticulitis, although she never did take any prescribed medication. She has natural tendency toward constipation. She has not had any diarrhea. There is no associated nausea or vomiting. She had similar pain 2 peña ago that was never worked up. With recent ER visit, she has had negative abdominal and pelvic CT and ultrasound. On ER evaluation yesterday, her lipase was noted to be elevated. Now, they have been decreasing. She denies any alcohol consumption. She denies any dark urine. There is no history of liver disease or any previous jaundice. Her left-sided abdominal pain has resolved since this morning. Currently, she is pain free. PAST MEDICAL HISTORY: 1. Hypertension. 2. Status post rhinoplasty. 3. Breast augmentation. SOCIAL HISTORY: The patient is . Has no tobacco or alcohol usage. FAMILY HISTORY: Negative for any known GI problem, liver disease, or GI malignancy. ALLERGIES: NONE. MEDICATIONS: At home include: 1. Metoprolol 25 b.i.d. 2. Lisinopril 20 mg daily. 3. Lexapro 10 mg daily. 4. Aspirin 81 mg daily. 5. Amlodipine 5 mg b.i.d. REVIEW OF SYSTEMS: Ten-point review of systems did not show any other pertinent positives or negatives. PHYSICAL EXAMINATION: VITAL SIGNS: Temperature is 97.6. Her pulse is currently at 65 on Cardizem drip and blood pressure 102/68. GENERAL: She is alert and conversant, in no distress. HEENT: Shows anicteric sclerae. Oropharynx clear. NECK: Supple. CV: Shows normal S1 and S2. Regular rate and rhythm. CHEST: Shows a breath sounds. ABDOMEN: Mildly protuberant and nontender. No palpable mass or organomegaly. She has active bowel sounds. EXTREMITIES: Show no edema. LABORATORY DATA: WBC 17.8, hemoglobin 14.4, platelet count of 390. Electrolytes within normal range. Bilirubin 0.3, AST 24, ALT 35, alkaline phosphatase 107, and lipase of 87 (lipase on 08/28, one CT was obtained, was 296. Abdominal ultrasound performed on 08/28 showed normal liver, gallbladder, and bile duct. She did have a right renal cyst in abdominal pelvic CT done on 08/22, showed a small hiatal hernia, otherwise normal spleen, liver, pancreas, and kidneys except for small right renal cysts. She did have moderate amount of stool in the colon on the CT scan. ASSESSMENT: Two-month history of episodic left-sided abdominal pain that currently resolved. Physical exam shows a very benign normal abdomen. Her abdominal pelvic CT and ultrasound are both normal. Etiology of pain is not known. Her isolated mild elevation of lipase is likely nonspecific as her pancreas appears normal on CT without any evidence of pancreatitis. Her pain could be related to intermittent colonic spasm, perhaps related to her constipation. RECOMMENDATIONS: 1. Dicyclomine 10 mg p.o. q.i.d. as needed for recurrent pain. 2. MiraLAX 17 g daily. 3. We will proceed with diagnostic EGD and colonoscopy. Job ID: [id number] [facility]OSPITALFrancisca
[2018-08-31 06:11] LABS: #Basophils 0.1 thou/uL (0.0-0.2); #Eosinphils 0.2 thou/uL (0.0-0.7); #Lymphocytes 3.4 thou/uL (1.20-3.40); #Monocytes 0.8 thou/uL (0.11-0.59); #Neutrophils 3.5 thou/uL (1.40-6.50); %Basophils 1.6 % (0.0-1.0); %Eosinophils 2.7 % (0.0-10.0); %Lymphocytes 42.1 % (21.0-51.0); %Monocytes 10.5 % (0.0-10.0); %Neutrophils 43.2 % (42.0-75.0); Hemoglobin 12.6 g/dL (12.0-16.0); Mean Corpuscular HGB CONC 33.4 g/dL (32.0-36.0); Mean Platelet Volume 7.1 fL (7.4-10.4); Platelet Count 306 thou/uL (130-400); RBC Distribution Width 12.3 % (11.5-14.5); Red Blood Cell (RBC) Count 3.93 mill/uL (4.20-5.40)
[2018-08-31 06:33] LABS: Anion Gap 12 mmol/L (10-20); BUN (Urea Nitrogen) 16 mg/dL (9.8-20.1); Calc. Creatinine Clearance 59 mL/min (70-130); Calcium 9.1 mg/dL (7.8-10.44); Carbon Dioxide 29 mmol/L (23-31); Chloride 100 mmol/L (98-107); Estimated GFR-MDRD 62; Glucose 103 mg/dL (80-115); Sodium 137 mmol/L (136-145)
[2018-08-31] MEDS ORDERED: Prevnar 13-Val Conj/PF 0.5 ML SYRINGE IM ONE (09:00)
[2018-08-31] MEDS: Metoprolol Tartrate 25 MG TAB PO SCH ×2 (09:07→20:59)
[2018-08-31] MEDS: Dronedarone HCl 400 MG TAB PO SCH ×2 (09:07→17:12)
--- NOTE | 2018-08-31 09:11 | PRG ---
DATE OF SERVICE: 08/31/2018 SUBJECTIVE: Yenifer Sellers is a 67-year-old female, who was taken over for colonoscopy this morning. No shortness of breath, cough, or wheezing. Labs are unremarkable. Denies any difficulty breathing. OBJECTIVE: VITAL SIGNS: Saturations are 90% on room air, temperature 98, blood pressure 111/55. CHEST: Decreased breath sounds. No wheezing. CARDIAC: Normal S1 and S2. No gallops. ABDOMEN: No masses. ASSESSMENT: 1. Supraventricular tachycardia. 2. Abdominal pain, for colonoscopy. 3. No respiratory distress. PLAN: Pulmonary standpoint of view, probably follow at a distance. Her numbers, amylase and lipase have improved. Please call Pulmonary if needed. Job ID: [id number]
[2018-08-31] MEDS ORDERED: Ondansetron PF 4 MG/2 ML Vial ONE (11:33)
[2018-08-31] MEDS ORDERED: Promethazine HCl 25 MG/ML VIAL IM PRN (11:35)
[2018-08-31] MEDS ORDERED: Promethazine HCl 25 MG/ML VIAL SLOW IVP PRN (11:35)
[2018-08-31] MEDS ORDERED: Ondansetron HCl/PF 4 MG/2 ML Vial IVP PRN (11:35)
[2018-08-31] MEDS ORDERED: Promethazine HCl 25 MG/ML VIAL ONE (11:59)
[2018-08-31] MEDS: Aspirin 81 mg Enteric Coated Tablet PO SCH (12:31)
[2018-08-31] MEDS: Lisinopril 20 MG TAB PO SCH (12:31)
[2018-08-31] MEDS: Enoxaparin Sodium 30 MG/0.3 ML SYRINGE SC SCH (12:32)
[2018-08-31] MEDS: Escitalopram Oxalate 10 mg Tablet PO SCH (12:32)
[2018-08-31] MEDS: Amlodipine 5 MG TAB PO SCH ×2 (12:32→20:58)
[2018-08-31] MEDS: Polyethylene Glycol 3350 17 GM Packet PO SCH (12:33)
--- NOTE | 2018-08-31 12:45 | OP ---
DATE OF PROCEDURE: 08/30/2018 PROCEDURES PERFORMED: Esophagogastroduodenoscopy with biopsy and colonoscopy with snare polypectomy. PREOPERATIVE DIAGNOSES: Left upper quadrant abdominal pain and left lower quadrant abdominal pain. DESCRIPTION OF PROCEDURE: Informed consent was obtained from the patient. She was sedated with total intravenous anesthesia. The bite block was placed, and the endoscope was advanced easily to the second portion of the duodenum, and retroflexion was performed in the stomach. The esophagus had a few scattered white plaques suggestive of mild fungal esophagitis. Biopsies were obtained. There was a 3-cm hiatal hernia present. The stomach was normal including retroflexed views otherwise. The pylorus and first and second portions of the duodenum were normal. Biopsies were taken from the second portion of the duodenum to rule out celiac disease. The patient was turned around. Rectal exam was performed and was normal. The preparation quality was excellent. The colonoscope was advanced to the terminal ileum without difficulty. The mucosa of the terminal ileum was normal. The ileocecal valve and appendiceal orifice were clearly identified. I removed a 5-mm polyp from the descending colon by snare cautery polypectomy. The remainder of the colonic mucosa was normal. She had glujcjxt-yr-rgpe diverticulosis in the sigmoid colon. Retroflex views in the rectum were normal. IMPRESSION: 1. Few white plaques in the quu-tn-wmzheh esophagus suggestive of fungal esophagitis. Biopsies were obtained to evaluate. 2. 3-cm hiatal hernia. 3. Otherwise normal EGD. Duodenal biopsies were taken to rule out celiac disease. 4. A 5-mm polyp was removed from the descending colon by snare cautery polypectomy. 5. Iwcj-ul-fopvteos sigmoid diverticulosis. 6. Otherwise normal colonoscopy to the terminal ileum. There were no diverticula that appeared inflamed or to be suggestive of a significant source for her pain. RECOMMENDATIONS: 1. Await histopathology. 2. High-fiber diet. 3. Timing of surveillance colonoscopy will be determined by histopathology of the descending colon polyp. 4. MiraLAX 17 g daily. 5. Follow up in GI Clinic with Dr. Sr for further management of her chronic left-sided abdominal pain. I will sign off for now. Please call if GI can be of assistance. Job ID: [id number]
--- NOTE | 2018-08-31 14:28 | PDOC.CTH ---
Cardiology Progress Note - Subjective EP PROGRESS NOTE: 08/31/18 Seen as follow up for atrial arrhythmias. Presented to ER for palpitations and abd pain. Found in atrial flutter with RVR. Given IV lopressor which converted her to SR. She was not taking her metoprolol at home. Since admission she has continued to have episodes of abd pain but no further heart racing or palpitations. - Objective Vital Signs Temp Pulse Resp BP BP Pulse Ox 08/31/18 12:32 79 08/31/18 12:31 98.2 F 79 18 194/92 H 194/92 H 98 08/31/18 07:25 98.1 F 66 18 111/56 L 98 08/31/18 04:00 97.8 F 55 L 17 103/55 L 97 Weight 135 lb 8 oz 08/30/18 08/31/18 09/01/18 06:59 06:59 06:59 Intake Total 70 1455 Output Total 700 850 Balance -630 605 - Physical Examination General/Neuro: alert & oriented x3, NAD Neck: carotid US brisk, no JVD present Lungs: CTA, unlabored respirations Heart: PMI normal, RRR Abdomen: NT/ND, soft - Telemetry Telemetry Rhythm: SR - Labs Result Diagrams: 08/31/18 05:54 08/31/18 05:54 Troponin/CKMB Troponin I Less than 0.010 ng/mL (< 0.028) 08/30/18 00:16 - Assessment/Plan 1. Atrial flutter vs coarse fibrillation with RVR - converted to SR after IV lopressor - remains in SR - not complaint with PO metoprolol that was recently started when she was dx with AF - started multaq 400mg PO BID for suppression 2. Abdominal pain, persistent - possible ulcerative disease. consider GI consult/workup before starting OAC 3. CHADS2-VASC: at least 3 - OAC is indicated. 4. Leukocytosis - idiopathic at this point Remains in SR. Continue Eliquis and multaq. Rhythm stable overnight. Will schedule ablation as outpatient.
[2018-08-31] MEDS ORDERED: hydrALAZINE 20 MG/ML VIAL SLOW IVP PRN (17:20)
[2018-08-31] MEDS ORDERED: cloNIDine 0.1 MG TAB PO PRN (17:20)
--- NOTE | 2018-08-31 17:22 | PDOC.PN ---
- Subjective Encounter Start Date: 08/31/18 Encounter Start Time: 17:20 Ms. Sellers was seen today in follow-up of Atrial flutter. She has returned from EGD, and she is feeling a bit nauseated. Her blood pressure also has been a bit elevated. - Objective Resuscitation Status - Order Detail: 08/30/18 03:40 Resuscitation Status Routine Resuscitation Status: FULL: Full Resuscitation MAR Reviewed: Yes Vital Signs & Weight: Vital Signs (12 hours) Temp Pulse Resp BP BP BP Pulse Ox 08/31/18 16:40 98.6 F 85 18 175/81 H 94 L 08/31/18 14:40 167/80 H 08/31/18 13:30 85 153/77 H 08/31/18 12:32 79 08/31/18 12:31 98.2 F 79 18 194/92 H 194/92 H 98 08/31/18 07:25 98.1 F 66 18 111/56 L 98 Weight Weight 135 lb 8 oz Most Recent Monitor Data Heart Rate from ECG 56 NIBP 96/53 NIBP BP-Mean 67 Respiration from ECG 19 SpO2 100 I&O: 08/30/18 08/31/18 09/01/18 06:59 06:59 06:59 Intake Total 70 1455 500 Output Total 700 850 Balance -630 605 500 Result Diagrams: 08/31/18 05:54 08/31/18 05:54 Phys Exam - Physical Examination HEENT: PERRLA Respiratory: no wheezing, no rales, no rhonchi, clear to auscultation bilateral Cardiovascular: RRR, no significant murmur, no rub Gastrointestinal: soft, non-tender, no distention, positive bowel sounds Musculoskeletal: no edema, pulses present Dx/Plan (1) Atrial flutter Code(s): I48.92 - UNSPECIFIED ATRIAL FLUTTER Status: Resolved Comment: pt converted to sinus rhythm, recurrent (2) Abdominal pain Code(s): R10.9 - UNSPECIFIED ABDOMINAL PAIN Status: Acute Qualifiers: Abdominal location: left upper quadrant Qualified Code(s): R10.12 - Left upper quadrant pain (3) Hypertension Code(s): I10 - ESSENTIAL (PRIMARY) HYPERTENSION Status: Chronic Qualifiers: Hypertension type: essential hypertension Qualified Code(s): I10 - Essential (primary) hypertension - Plan * Atrial Flutter- she has converted to sinus rhythm after IV Metoprolol * Continue Multaq as per EP * Abdominal pain- ? etiology- EGD findings noted * HTN- her blood pressure has been elevated after the procedure- will add PRN medications, titrate her home medications only if needed * Possible home tomorrow if she remains stable.
--- NOTE | 2018-09-01 04:24 | PDOC.EVN ---
Event Note - Event Note Event Note: RN called - BP in 70s. Pt is asymtomatic. STAT labs ordered. IV NS bolus. Hold BP meds for SBP <110
[2018-09-01] MEDS ORDERED: Sodium Chloride 0.9% 500 ML IV SCH ×3 (04:30→19:45)
[2018-09-01 05:05] LABS: #Basophils 0.1 thou/uL (0.0-0.2); #Eosinphils 0.1 thou/uL (0.0-0.7); #Lymphocytes 2.4 thou/uL (1.20-3.40); #Monocytes 0.9 thou/uL (0.11-0.59); #Neutrophils 8.2 thou/uL (1.40-6.50); %Basophils 0.7 % (0.0-1.0); %Eosinophils 0.6 % (0.0-10.0); %Lymphocytes 20.6 % (21.0-51.0); %Monocytes 7.6 % (0.0-10.0); %Neutrophils 70.5 % (42.0-75.0); Hemoglobin 12.6 g/dL (12.0-16.0); Mean Corpuscular HGB CONC 33.4 g/dL (32.0-36.0); Mean Corpuscular Volume 95.8 fL (78.0-98.0); Mean Platelet Volume 7.1 fL (7.4-10.4); Platelet Count 361 thou/uL (130-400); RBC Distribution Width 12.2 % (11.5-14.5); Red Blood Cell (RBC) Count 3.94 mill/uL (4.20-5.40); White Blood Cell (WBC) Count 11.6 thou/uL (4.8-10.8)
[2018-09-01 05:18] LABS: Lactic Acid 2.4 mmol/L (0.5-2.2)
[2018-09-01 05:29] LABS: Anion Gap 13 mmol/L (10-20); BUN (Urea Nitrogen) 22 mg/dL (9.8-20.1); Calc. Creatinine Clearance 38 mL/min (70-130); Carbon Dioxide 24 mmol/L (23-31); Chloride 99 mmol/L (98-107); Estimated GFR-MDRD 37; Glucose 144 mg/dL (80-115); Magnesium 2.1 mg/dL (1.6-2.6); Potassium 3.3 mmol/L (3.5-5.1); Sodium 133 mmol/L (136-145)
[2018-09-01] MEDS: cefTRIAXone\\ROCEPHIN 1 GM in Sodium Chloride 0.9% 100 ML IVPB SCH (05:40)
[2018-09-01] MEDS: NS 0.9% w/ 20 MEQ KCL 1,000 ML/1,000 ML BAG IV SCH ×2 (07:02→15:36)
[2018-09-01] MEDS: Dronedarone HCl 400 MG TAB PO SCH ×2 (09:10→17:25)
[2018-09-01] MEDS: Aspirin 81 mg Enteric Coated Tablet PO SCH (09:10)
[2018-09-01] MEDS: Escitalopram Oxalate 10 mg Tablet PO SCH (09:10)
[2018-09-01] MEDS: Enoxaparin Sodium 30 MG/0.3 ML SYRINGE SC SCH (09:10)
[2018-09-01] MEDS: Polyethylene Glycol 3350 17 GM Packet PO SCH (09:11)
[2018-09-01 09:13] LABS: Lactic Acid 0.9 mmol/L (0.5-2.2)
--- NOTE | 2018-09-01 12:09 | EKG ---
Test Reason : Blood Pressure : / mmHG Vent. Rate : 177 BPM Atrial Rate : 315 BPM P-R Int : 000 ms QRS Dur : 080 ms QT Int : 286 ms P-R-T Axes : 093 047 070 degrees QTc Int : 490 ms Atrial flutter with variable A-V block with premature ventricular or aberrantly conducted complexes Abnormal ECG Rate related ST depression Confirmed by LEXI FISHER DO ([id number]), international editorial producer [place] MCNALLY ([id number]) on 09/01/2018 12:09:25 PM Referred By: Confirmed By:LEXI FISHER DO
--- NOTE | 2018-09-01 12:16 | PDOC.CTH ---
Cardiology Progress Note - Subjective EP PROGRESS NOTE: 09/01/18 Seen as follow up for atrial arrhythmias. Presented to ER for palpitations and abd pain. Found in atrial flutter with RVR. Given IV lopressor which converted her to SR. She was not taking her metoprolol at home. Since admission she has continued to have episodes of abd pain but no further heart racing or palpitations. - Objective Vital Signs Temp Pulse Resp BP BP Pulse Ox 09/01/18 08:05 97.8 F 64 16 111/59 L 97 09/01/18 06:15 80/42 L 09/01/18 04:00 98.6 F 63 14 70/45 L 98 Weight 137 lb 08/31/18 09/01/18 09/02/18 06:59 06:59 06:59 Intake Total 1455 2460 Output Total 850 Balance 605 2460 - Physical Examination General/Neuro: alert & oriented x3, NAD Neck: carotid US brisk, no JVD present Lungs: CTA, unlabored respirations Heart: PMI normal, RRR Abdomen: NT/ND, soft - Telemetry Telemetry Rhythm: SR - Labs Result Diagrams: 09/01/18 04:41 09/01/18 04:41 Troponin/CKMB Troponin I Less than 0.010 ng/mL (< 0.028) 08/30/18 00:16 - Assessment/Plan 1. Atrial flutter vs coarse fibrillation with RVR - converted to SR after IV lopressor - remains in SR - not complaint with PO metoprolol that was recently started when she was dx with AF - started multaq 400mg PO BID for suppression 2. Abdominal pain, persistent - L abd - EGD showed 2-3 cm hiatal hernia and fungal esophagitis. Colonoscopy mild - mod sigmoid diverticulosis. 1 polyp removed. Made diet recommendations and signed off. 3. CHADS2-VASC: at least 3 - OAC is indicated but continue ASA for not with recent polyp removal for potential bleeding complications 4. Leukocytosis - idiopathic at this point Remains in SR. Continue Multaq. Rhythm stable overnight. Will schedule ablation as outpatient in ~2 weeks. Follow up appt on tuesday in [facility] ( in DC plan). Will need Rx for 2-3 week supply of multaq at time of DC please ( expensive medication and trying to limit her out of pocket cost). She would like to wait 2 weeks before proceeding with RFA. OK for DC by EP
--- NOTE | 2018-09-01 17:34 | PRG ---
DATE OF SERVICE: 09/01/2018 SUBJECTIVE: Ms. Sellers has had no abdominal pain. No nausea or vomiting. She did have an episode of diarrhea today. OBJECTIVE: VITAL SIGNS: Temperature 97.8, pulse 64, blood pressure 111/59. GENERAL: She is in no acute distress. Alert and oriented x3. LUNGS: Clear to auscultation bilaterally. HEART: Regular rate and rhythm without murmur. ABDOMEN: Soft, nontender, nondistended. Bowel sounds are present. EXTREMITIES: No lower extremity edema. LABORATORY DATA: White blood cell count 11.6, hemoglobin 12.6, platelets 361. Creatinine 1.41. IMPRESSION: 1. Celiac disease. Duodenal biopsy showed typical findings of gluten sensitive enteropathy. I will send tissue transglutaminase antibody to correlate with this. She has had chronic abdominal discomfort, which could be explained by the celiac disease. Ultimately, she will need to start a strict gluten-free diet and followup endoscopy and biopsies can be considered following that. 2. Hiatal hernia. She has had some reflux symptoms as well and should be continued on proton pump inhibitor. 3. A 5-mm adenoma was removed from the descending colon yesterday. RECOMMENDATIONS: 1. Start strict gluten-free diet. 2. Check tissue transglutaminase antibody today and total immunoglobulin A level. 3. Continue proton pump inhibitor daily. 4. Dietitian consultation to assist with gluten-free diet. Job ID: [id number]
--- NOTE | 2018-09-01 17:59 | PDOC.PN ---
- Subjective Encounter Start Date: 09/01/18 Encounter Start Time: 10:40 Ms. Sellers was seen today in follow-up of Atrial flutter. She does not have any complaints. She feels better today than yesterday. However, her blood pressure was running very low this morning. - Objective Resuscitation Status - Order Detail: 08/30/18 03:40 Resuscitation Status Routine Resuscitation Status: FULL: Full Resuscitation MAR Reviewed: Yes Vital Signs & Weight: Vital Signs (12 hours) Temp Pulse Resp BP BP Pulse Ox 09/01/18 17:28 98.4 F 73 18 107/55 L 95 09/01/18 12:25 97.8 F 73 18 100/62 95 09/01/18 08:05 97.8 F 64 16 111/59 L 97 09/01/18 07:45 95 09/01/18 06:15 80/42 L Weight Weight 137 lb Most Recent Monitor Data Heart Rate from ECG 56 NIBP 96/53 NIBP BP-Mean 67 Respiration from ECG 19 SpO2 100 I&O: 08/31/18 09/01/18 09/02/18 06:59 06:59 06:59 Intake Total 1455 2460 Output Total 850 Balance 605 2460 Result Diagrams: 09/01/18 04:41 09/01/18 04:41 Phys Exam - Physical Examination HEENT: PERRLA Respiratory: no wheezing, no rales, no rhonchi, clear to auscultation bilateral Cardiovascular: RRR, no significant murmur, no rub Gastrointestinal: soft, non-tender, no distention, positive bowel sounds Musculoskeletal: no edema Dx/Plan (1) Atrial flutter Code(s): I48.92 - UNSPECIFIED ATRIAL FLUTTER Status: Resolved Comment: pt converted to sinus rhythm, recurrent (2) Abdominal pain Code(s): R10.9 - UNSPECIFIED ABDOMINAL PAIN Status: Acute Qualifiers: Abdominal location: left upper quadrant Qualified Code(s): R10.12 - Left upper quadrant pain (3) Hypertension Code(s): I10 - ESSENTIAL (PRIMARY) HYPERTENSION Status: Chronic Qualifiers: Hypertension type: essential hypertension Qualified Code(s): I10 - Essential (primary) hypertension (4) Celiac disease Code(s): K90.0 - CELIAC DISEASE Status: Acute - Plan * Atrial flutter- she has converted to sinus * Plan is to pursue Ablation as an outpatient * Abdominal pain- Gi evaluation noted- she was found to have findings consistent with Celiac disease on small bowel biopsy. Will consult barrel polisher for instruction on a gluten free diet * Likely home tomorrow.
[2018-09-01] MEDS ORDERED: Potassium Chloride 20 MEQ TAB PO SCH (19:00)
[2018-09-01 20:15] LABS: Lactic Acid 2.5 mmol/L (0.5-2.2)
[2018-09-01 20:20] LABS: ALT (SGPT) 18 U/L (8-55); AST (SGOT) 13 U/L (5-34); Albumin 3.4 g/dL (3.4-4.8); Alkaline Phosphatase 71 U/L (40-150); Anion Gap 13 mmol/L (10-20); BUN (Urea Nitrogen) 24 mg/dL (9.8-20.1); Bilirubin, Total 0.4 mg/dL (0.2-1.2); Calc. Creatinine Clearance 48 mL/min (70-130); Carbon Dioxide 19 mmol/L (23-31); Chloride 105 mmol/L (98-107); Estimated GFR-MDRD 49; Globulin 1.8 g/dL (2.4-3.5); Glucose 119 mg/dL (80-115); Magnesium 1.7 mg/dL (1.6-2.6); Potassium 3.6 mmol/L (3.5-5.1); Protein, Total 5.2 g/dL (6.0-8.3); Sodium 133 mmol/L (136-145)
[2018-09-02] MEDS: cefTRIAXone\\ROCEPHIN 1 GM in Sodium Chloride 0.9% 100 ML IVPB SCH (05:47)
[2018-09-02 06:46] LABS: Anion Gap 11 mmol/L (10-20); BUN (Urea Nitrogen) 20 mg/dL (9.8-20.1); Calc. Creatinine Clearance 66 mL/min (70-130); Calcium 8.3 mg/dL (7.8-10.44); Carbon Dioxide 21 mmol/L (23-31); Chloride 106 mmol/L (98-107); Estimated GFR-MDRD 63; Glucose 86 mg/dL (80-115); Potassium 4.8 mmol/L (3.5-5.1); Sodium 133 mmol/L (136-145)
[2018-09-02] MEDS: Dronedarone HCl 400 MG TAB PO SCH (10:06)
[2018-09-02] MEDS: Aspirin 81 mg Enteric Coated Tablet PO SCH (10:06)
[2018-09-02] MEDS: Escitalopram Oxalate 10 mg Tablet PO SCH (10:06)
[2018-09-02] MEDS: Enoxaparin Sodium 30 MG/0.3 ML SYRINGE SC SCH (10:07)
[2018-09-02] MEDS: Polyethylene Glycol 3350 17 GM Packet PO SCH (10:08)
[2018-09-02] MEDS ORDERED: Fluconazole 100 MG TAB PO SCH (10:35)
--- NOTE | 2018-09-02 11:12 | PRG ---
DATE OF SERVICE: 09/02/2018 SUBJECTIVE: Ms. Sellers has no acute complaints today. She is tolerating her diet. No abdominal pain. OBJECTIVE: VITAL SIGNS: Temperature 98.5, pulse 80, and blood pressure 128/66. GENERAL: She is in no acute distress. Alert and oriented x3. LUNGS: Clear to auscultation bilaterally. HEART: Regular rate and rhythm without murmur. ABDOMEN: Soft, nontender, nondistended. Bowel sounds are present. EXTREMITIES: No lower extremity edema. LABORATORY DATA: Her creatinine is 0.9 today. IMPRESSION: 1. Celiac disease confirmed by duodenal biopsies. Tissue transglutaminase antibody is pending. She has been started on a gluten-free diet. This will require followup endoscopy and repeat biopsies likely in the future after she has been on a strict gluten-free diet to evaluate response. Also await tissue transglutaminase antibody and follow trend of that value. 2. Mghxh-mo-fyhwkxct hiatal hernia. 3. A small colon adenoma was removed from the descending colon day before yesterday. 4. Fungal esophagitis. We will start fluconazole for that. RECOMMENDATIONS: 1. Fluconazole 400 mg today and then 200 mg daily for 13 more days. 2. Await tissue transglutaminase antibody IgA and total immunoglobulin A level. This can be followed up as an outpatient. 3. Proton pump inhibitor daily. 4. Follow up in GI clinic with Dr. Sr in 2 to 4 weeks. Job ID: [id number]
[2018-09-02 12:12] VITALS: BP 151/71; TEMP 98.1
--- NOTE | 2018-09-02 12:36 | PDOC.PN ---
- Subjective Encounter Start Date: 09/02/18 Encounter Start Time: 12:33 Ms. Sellers was seen today in follow-up of Atrial flutter. she does not have any complaints this morning. She denies chest pain or difficulty breathing. She denies feeling dizzy or lightheaded. - Objective Resuscitation Status - Order Detail: 08/30/18 03:40 Resuscitation Status Routine Resuscitation Status: FULL: Full Resuscitation MAR Reviewed: Yes Vital Signs & Weight: Vital Signs (12 hours) Temp Pulse Resp BP Pulse Ox 09/02/18 12:00 98.1 F 88 16 151/71 H 98 09/02/18 08:00 98.5 F 80 18 128/66 96 09/02/18 04:00 98.6 F 88 20 117/59 L 98 Weight Weight 149 lb 4.047 oz Most Recent Monitor Data Heart Rate from ECG 56 NIBP 96/53 NIBP BP-Mean 67 Respiration from ECG 19 SpO2 100 I&O: 09/01/18 09/02/18 09/03/18 06:59 06:59 06:59 Intake Total 2460 772 240 Balance 2460 772 240 Result Diagrams: 09/01/18 04:41 09/02/18 05:39 Phys Exam - Physical Examination HEENT: PERRLA Respiratory: no wheezing, no rales, no rhonchi, clear to auscultation bilateral Cardiovascular: RRR, no significant murmur, no rub Gastrointestinal: soft, non-tender, no distention, positive bowel sounds Musculoskeletal: no edema, pulses present Dx/Plan (1) Atrial flutter Code(s): I48.92 - UNSPECIFIED ATRIAL FLUTTER Status: Resolved Comment: pt converted to sinus rhythm, recurrent (2) Abdominal pain Code(s): R10.9 - UNSPECIFIED ABDOMINAL PAIN Status: Acute Qualifiers: Abdominal location: left upper quadrant Qualified Code(s): R10.12 - Left upper quadrant pain (3) Hypertension Code(s): I10 - ESSENTIAL (PRIMARY) HYPERTENSION Status: Chronic Qualifiers: Hypertension type: essential hypertension Qualified Code(s): I10 - Essential (primary) hypertension (4) Celiac disease Code(s): K90.0 - CELIAC DISEASE Status: Acute - Plan * Atrial fibrillation/ Atrial Flutter- she is currently in sinus * Celiac disease- will send her home with information on a gluten free diet * HTN- blood pressure has recovered * She is stable for discharge home.
--- NOTE | 2018-09-03 01:57 | DIS ---
DATE OF ADMISSION: 08/30/2018 DATE OF DISCHARGE: 09/02/2018 DISCHARGE DISPOSITION: Home. PRIMARY DISCHARGE DIAGNOSES: 1. Atrial flutter. 2. Acute kidney injury. 3. Hyponatremia. 4. Hypertension with very labile systolic blood pressure. 5. Celiac disease, newly diagnosed during this admission. DISCHARGE MEDICATIONS: 1. Lopressor 25 mg p.o. twice daily. 2. Lisinopril 20 mg daily. 3. Lexapro 10 mg daily. 4. Multaq 400 mg twice a day. 5. Aspirin 81 mg daily. 6. Norvasc 5 mg twice a day. The patient will be placed on a gluten free diet. PROCEDURES DONE DURING THE ADMISSION: The patient had an upper endoscopy showing few white plaques in the mid to distal esophagus suggestive of fungal esophagitis. Biopsies were taken. Otherwise, normal EGD and also otherwise normal colonoscopy to the terminal ileum. The patient had a biopsy showing villous blunting and crypt hyperplasia consistent with celiac sprue. CODE STATUS: Full code. ALLERGIES: NO KNOWN DRUG ALLERGIES. HOSPITAL COURSE: Ms. Sellers is a pleasant 67-year-old female, who was admitted to the hospital after she had the onset of palpitations. She was found to be in atrial fibrillation with rapid ventricular response. She was started on IV Cardizem, and Cardiology was consulted. She was also seen by Electrophysiology and she was placed on Multaq. She converted with these changes in her medications and there were plans to undergo ablation of the atrial flutter. However, she was having complaints of some low-grade pain in the left abdomen for several weeks to months, which had been in the process of being evaluated as an outpatient. For this reason, she underwent upper endoscopy to ensure that there was no occult ulcer. She underwent EGD and colonoscopy, and biopsies from the upper endoscopy demonstrated areas in the duodenum consistent with celiac disease. She was counseled on the need to be on a gluten free diet and information was given to her with regard to gluten free meal preparation as well as diet in general. Also, it was noted that she had extremely labile blood pressure during her hospital stay. Her blood pressures were extremely elevated post EGD and then following EGD the following day, they dropped precipitously low and for this reason, she was taken off her antihypertensive medications and told to hold these. She was told to monitor her blood pressure twice daily and then restart her blood pressure medications in a stepwise fashion beginning with the beta-sharmila or the metoprolol once her systolic blood pressure began to creep above 140. She was also to follow up with Cardiology within 1-2 weeks in order to check on her blood pressure as well as to get further instructions in regard to follow up with respect to the atrial flutter. She is also to establish a primary care physician in the outpatient setting soon. Job ID: [id number]
== END 2018-09-02 15:45 | disposition home or self-care (01) | DRG 309 ==
LOC: ERS 00:06 → IMCU/EMU 02:19 → 2NO 23:17
PROVIDERS: ADMIT Hospitalist; ATTEND Hospitalist
PROC: 0DB58ZX Excision of Esophagus, Via Natural or Artificial Opening Endoscopic, Diagnostic (ICD-10-PCS; principal; 2018-08-31)
PROC: 0DB98ZX Excision of Duodenum, Via Natural or Artificial Opening Endoscopic, Diagnostic (ICD-10-PCS; 2018-08-31)
PROC: 0DBM8ZZ Excision of Descending Colon, Via Natural or Artificial Opening Endoscopic (ICD-10-PCS; 2018-08-31)
DX: I48.92 Unspecified atrial flutter (principal); N17.9 Acute kidney failure, unspecified; E87.1 Hypo-osmolality and hyponatremia; I48.91 Unspecified atrial fibrillation; F32.9 Major depressive disorder, single episode, unspecified; D72.829 Elevated white blood cell count, unspecified; I10 Essential (primary) hypertension; K44.9 Diaphragmatic hernia without obstruction or gangrene; K90.0 Celiac disease; D12.4 Benign neoplasm of descending colon; K20.8 Other esophagitis; K57.30 Diverticulosis of large intestine without perforation or abscess without bleeding; Z79.899 Other long term (current) drug therapy; Z79.82 Long term (current) use of aspirin; Z91.14 Patient's other noncompliance with medication regimen
CPT/HCPCS: 36415; 71045; 76705; 80048; 80053; 82150; 82550; 83516; 83605; 83690; 83735; 83880; 84484; 85025; 88305; 88312; 88313; 90471; 90670; 93005; 94760; 96361; 96365; 96374; 96376; G0009; J0696; J1650; J2405; J2550; J3480; J3490

== ENCOUNTER 2018-10-09 09:18 | Day surgery (SDC) | payer MEDICARE ==
[2018-10-06 12:13] VITALS: BMI 24.7
[2018-10-09] MEDS ORDERED: Heparin 10,000 UNITS/1 ML VIAL ONE (10:28)
[2018-10-09] MEDS ORDERED: Lidocaine 1% (PF) 30 ML VIAL ONE (10:28)
[2018-10-09 10:42] LABS: #Basophils 0.1 thou/uL (0.0-0.2); #Eosinphils 0.2 thou/uL (0.0-0.7); #Lymphocytes 1.5 thou/uL (1.20-3.40); #Monocytes 0.6 thou/uL (0.11-0.59); #Neutrophils 4.1 thou/uL (1.40-6.50); %Basophils 1.1 % (0.0-1.0); %Eosinophils 3.8 % (0.0-10.0); %Lymphocytes 22.9 % (21.0-51.0); %Neutrophils 63.2 % (42.0-75.0); Mean Corpuscular HGB CONC 34.2 g/dL (32.0-36.0); Mean Corpuscular Hemoglobin 32.1 pg (27.0-31.0); Mean Corpuscular Volume 93.7 fL (78.0-98.0); Mean Platelet Volume 8.2 fL (7.4-10.4); Platelet Count 249 thou/uL (130-400); Prothrombin Time 13.5 SEC (12.0-14.7); RBC Distribution Width 11.7 % (11.5-14.5); Red Blood Cell (RBC) Count 3.74 mill/uL (4.20-5.40); White Blood Cell (WBC) Count 6.5 thou/uL (4.8-10.8)
[2018-10-09 10:43] LABS: PTT 35.1 SEC (22.9-36.1)
[2018-10-09 10:53] LABS: Anion Gap 9 mmol/L (10-20); BUN (Urea Nitrogen) 23 mg/dL (9.8-20.1); Calc. Creatinine Clearance 69 mL/min (70-130); Calcium 9.6 mg/dL (7.8-10.44); Carbon Dioxide 29 mmol/L (23-31); Chloride 105 mmol/L (98-107); Estimated GFR-MDRD 72; Glucose 94 mg/dL (80-115); Potassium 3.6 mmol/L (3.5-5.1); Sodium 139 mmol/L (136-145)
[2018-10-09] MEDS ORDERED: Propofol 1,000 MG/100 ML VIAL IV ONE (12:24)
[2018-10-09] MEDS ORDERED: PHENYLEPHRINE-NS 100 MCG/ML 10 ML SYRINGE ONE (12:43)
[2018-10-09] MEDS ORDERED: Lidocaine 1% PF 5 ML VIAL ONE (12:43)
[2018-10-09] MEDS ORDERED: PROPOFOL 200 MG/20 ML VIAL ONE (12:43)
[2018-10-09] MEDS ORDERED: Fentanyl 100 MCG/2 ML VIAL ONE (12:47)
[2018-10-09] MEDS ORDERED: DOPamine 400 MG/D5W 250 ML 250 ML ONE (13:17)
--- NOTE | 2018-10-09 15:29 | EKG ---
Test Reason : PREOP ABLATION Blood Pressure : / mmHG Vent. Rate : 071 BPM Atrial Rate : 071 BPM P-R Int : 162 ms QRS Dur : 076 ms QT Int : 412 ms P-R-T Axes : 066 049 049 degrees QTc Int : 447 ms Normal sinus rhythm Possible Left atrial enlargement Borderline ECG When compared with ECG of 30-AUG-2018 00:11, Sinus rhythm has replaced Atrial flutter Vent. rate has decreased BY [address] no longer elevated in Inferior leads ST no longer depressed in Lateral leads Confirmed by RADHA LUO, SCharles ([id number]) on 10/09/2018 3:29:34 PM Referred By: [facility] Confirmed By:DR. Dima GARCIA MD
--- NOTE | 2018-10-09 17:37 | OP ---
DATE OF PROCEDURE: 10/09/2018 PROCEDURE PERFORMED: Electrophysiology study and radiofrequency ablation report. REASON FOR PROCEDURE: Ms. Sellers is a 67-year-old woman with history of recurrent atrial flutter. She is here for a cavotricuspid isthmus ablation. She has relatively short episodes, she is not on chronic anticoagulation, currently in sinus rhythm. DESCRIPTION OF PROCEDURE: The patient received deep sedation by anesthesia specialist. The right femoral venous area was prepped, draped, and anesthetized using subcutaneous lidocaine, and under ultrasound guidance, the right femoral vein was cannulated x2. Two 8-Macedonian short sheaths were introduced, through which a [employer] SFST catheter was used to obtain 3D map of the right atrium including His bundle and CS os, performed. Following that, a decapolar catheter was advanced to the right atrium, right ventricle, His bundle and CS position. Pacing mapping recording was performed including left atrial pacing via the CS. Burst atrial pacing was noted with a new short atrial fibrillation and also atrial flutter, which appears to be typical isthmus dependent, but shortly terminated prior to being able to study. The following findings were noted. Baseline rhythm was sinus rhythm at a cycle length of 1059 milliseconds, PA of 172, QRS 72, QT 430 milliseconds, AH 76, HV 50 milliseconds seen. Sinus node recovery time is 1324 hours, corrected 350 milliseconds, AV Wenckebach cycle length was 340 milliseconds, retrograde Wenckebach cycle length was 540 milliseconds. Concentric VA conduction was noted. The Cavotricuspid isthmus ablation was performed during proximal CS pacing. We delivered a total of 21 ablation lesions on the duration of 17 minutes and 45 seconds at 40 gustafson. We were able to prolong the transisthmus time from initial 30 to 130 milliseconds. Longest transisthmus time was measured recordings adjacent to the ablation line, suggestive of unilateral block. Burst atrial pacing in the end did not re-induce arrhythmias, but with occasional PACs with spontaneous run of atypical atrial flutter/fibrillation was noted, which was self-terminated. IV dopamine was administered at this point and then the cavotricuspid isthmus block was rechecked and any reconnection was re-ablated. In the beginning of the case , enlarged cardiac silhouette was noted, which did not change at the end of the procedure. The patient tolerated the procedure well. No complications noted. CONCLUSION: 1. Successful cavotricuspid isthmus ablation. 2. Nonsustained atrial fibrillation and atypical atrial flutter were also noted during the case, which were all self-terminated. 3. Normal sinus and AV rico function otherwise. No evidence of accessory pathway. PLAN: Continue monitoring. Start baby aspirin and consider full anticoagulation if sustained atrial fibrillation is noted in the future, in which case antiarrhythmic agents versus left atrial ablation should be entertained. Job ID: [id number] [facility] SYSTEMFrancisca
--- NOTE | 2018-10-10 18:52 | EKG ---
Test Reason : Blood Pressure : / mmHG Vent. Rate : 072 BPM Atrial Rate : 072 BPM P-R Int : 170 ms QRS Dur : 094 ms QT Int : 408 ms P-R-T Axes : 067 034 040 degrees QTc Int : 446 ms Normal sinus rhythm Possible Left atrial enlargement Incomplete right bundle branch block Borderline ECG When compared with ECG of 09-OCT-2018 10:01, No significant change was found Confirmed by RADHA LUO, . SCharles ([id number]) on 10/10/2018 6:51:46 PM Referred By: [facility] Confirmed By:DR. Dima GARCIA MD
== END 2018-10-09 19:35 | disposition home or self-care (01) ==
LOC: CCL 09:18
PROVIDERS: ATTEND Internal Medicine Cardiovascular Disease
PROC: 4A023FZ Measurement of Cardiac Rhythm, Percutaneous Approach (ICD-10-PCS; principal; 2018-10-09)
PROC: 4A0234Z Measurement of Cardiac Electrical Activity, Percutaneous Approach (ICD-10-PCS; 2018-10-09)
PROC: 02583ZZ Destruction of Conduction Mechanism, Percutaneous Approach (ICD-10-PCS; 2018-10-09)
PROC: 02K83ZZ Map Conduction Mechanism, Percutaneous Approach (ICD-10-PCS; 2018-10-09)
DX: I48.4 Atypical atrial flutter (principal); I48.91 Unspecified atrial fibrillation; I45.10 Unspecified right bundle-branch block; I10 Essential (primary) hypertension
CPT/HCPCS: 76942; 80048; 85025; 85610; 85730; 93005; 93010; 93613; 93621; 93623; 93653; C1730; C1732; C1769; J1265; J1644; J2001; J2704; J3010

== ENCOUNTER 2019-05-16 23:35 | Inpatient (IN) | payer MEDICARE ==
--- NOTE | 2019-05-17 00:28 | PDOC.FPRHP ---
- History of Present Illness Chief Complaint: abscess under breast History of Present Illness: 68 yo F with hx of breast augmentation 37 years ago, HTN (not on meds), HFpEF, afib s/p ablation last year (not currently taking any meds), hiatal hernia, celiac disease, presents with an abscess under her left breast and progressive weakness. About three months ago, she noticed a small lesion that was draining blood and pus under her left breast. She saw an SKIN TANNER at Dr. Hwang's office and was started on keflex a week ago, though has not finished all of her pills. She says it's not painful. She denies rash around the area. She also denies fever. She says she felt very weak tonight and thats why she came to the ER. She endorses decreased po intake for several weeks. She endorses a cough since March, productive of clear-white sputum. 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 She denies any cp, sob, abdominal pain, nausea or diarrhea. Endorses occasional post-tussive emesis. No family hx of breast cancer. Patient has never had mammogram. ED Course: 1g vanc, 900mg clinda, 3.375g zosyn, dilt drip, 1L NS - Allergies/Adverse Reactions Allergies Allergy/AdvReac Type Severity Reaction Status Date / Time No Known Allergies Allergy Verified 10/06/18 12:14 - Home Medications Medication Instructions Recorded Confirmed Type No Known 10/06/18 10/06/18 History - History PMHx: Hx of Afib s/p ablation last year- not on medications since ablation (2018 ); HTN (not taking medications), HFpEF, Depression (not on medications); hx of candidal esophagitis, diverticulosis, celiac's disease, hiatal hernia PSHx: S/p ablation, breast augmentation, rhinoplasty, D&C, hx of two prior stress tests FHx:Father at 53 yrs old of an [place] Social: denies smoking, alcohol, drug use - Review of Systems General: reports: weight/appetite/sleep changes, fatigue. denies: fever/chills ENT: reports: other (sore/raw tongue, decreased po intake, broken teeth). denies: nasal congestion, rhinorrhea Respiratory: reports: cough, exercise intolerance. denies: shortness of breath Cardiovascular: denies: palpitation, edema Gastrointestinal: denies: nausea, vomiting, diarrhea, abdominal pain Genitourinary: denies: dysuria, polyuria Skin: reports: lesions. denies: rashes Musculoskeletal: denies: pain, swelling Neurological: reports: syncope (April, near syncope), weakness, other ( mental confusion) Psychological: reports: depression - Vital signs BP: [101/60] HR: [103] RR: [22] Tmax: [101.8F] Pox: [98]% on [RA] Wt: [55.79kg ] - Physical Exam Constitutional: NAD, awake, alert and oriented (x3) HEENT: normocephalic and atraumatic, other (dry mucous membranes) Neck: supple, FROM Chest: no-tender to palpation, no lesions Heart: RRR, normal S1/S2 Lungs: CTAB, no respiratory distress Abdomen: soft, non-tender Musculoskeletal: normal structure, ROM grossly normal Neurological: no focal deficit, normal sensation Skin: other ([id number] lesion under L breast actively draining bloody pus; area of erythema close to L areola/nipple) Heme/Lymphatic: no unusual bruising or bleeding, no purpura Psychiatric: normal mood and affect, good judgment and insight FMR H&P: Results - Labs Result Diagrams: 05/17/19 05:57 05/17/19 05:57 - EKG Interpretation EKG: afib with rvr, rate 165 - Radiology Interpretation Chest x-ray Status: report reviewed by me (persistent density LL base, possibly infectious process L breast implant) FMR H&P: A/P - Problem List (1) Sepsis Current Visit: Yes Status: Acute Code(s): A41.9 - SEPSIS, UNSPECIFIED ORGANISM (2) Abscess of breast, left Current Visit: Yes Status: Acute Code(s): N61.1 - ABSCESS OF THE BREAST AND NIPPLE (3) Atrial fibrillation with RVR Current Visit: Yes Status: Acute Code(s): I48.91 - UNSPECIFIED ATRIAL FIBRILLATION (4) Hyponatremia Current Visit: Yes Status: Acute Code(s): E87.1 - HYPO-OSMOLALITY AND HYPONATREMIA (5) Hypokalemia Current Visit: Yes Status: Acute Code(s): E87.6 - HYPOKALEMIA (6) Transaminitis Current Visit: Yes Status: Acute Code(s): R74.0 - NONSPEC ELEV OF LEVELS OF TRANSAMNS & LACTIC ACID DEHYDRGNSE (7) Celiac disease Current Visit: No Status: Acute Code(s): K90.0 - CELIAC DISEASE (8) Depression Current Visit: No Status: Chronic Code(s): F32.9 - MAJOR DEPRESSIVE DISORDER , SINGLE EPISODE, UNSPECIFIED Qualifiers: Depression Type: major depressive disorder Psychotic features: without psychotic features (9) Hypertension Current Visit: No Status: Chronic Code(s): I10 - ESSENTIAL (PRIMARY) HYPERTENSION Qualifiers: Hypertension type: essential hypertension Qualified Code(s): I10 - Essential (primary) hypertension - Plan Patient 68 yo F with hx of breast augmentation 37 years ago, HTN (not on meds), HFpEF, afib s/p ablation last year (not currently taking any meds), hiatal hernia, celiac disease admitted for L breast abscess and afib with RVR. #Sepsis 2/2 L breast abscess -no hx of mammogram -draining abscess for 3 months, non-completed keflex script -erythema around L nipple, possibly cellulitis vs inflammatory breast changes -started on vanc and zosyn in the ED, continue -L breast US pending, can consider further imaging pending US -received fluid bolus, will continue maintenance IVF #Afib with RVR -hx of afib, not on any medications -RVR likely 2/2 sepsis from L breast abscess -EKG on admit demonstrated afib with rvr, rate 165 -started on dilt drip, on 2.5 on admit, continue -cards consult in am -echo pending #Hx of HFpEF -per 08/2018 echo: EF 55-60%, diastolic dysfunction -appears hypovolemic on exam, will fluid resuscitate carefully -repeat echo ordered #HTN -not hypertensive on exam -will continue to monitor and consider starting po meds #Transaminitis -AST 81, ALT 73; no drinking hx -hep panel pending, RPR/HIV pending #Hyponatremia -sodium 122, improved to 127 with fluids -likely hypovolemic hyponatremia -urine sodium and osm pending -will continue to monitor s/p fluids #Hypokalemia -potassium 3.3 -will replete and continue to monitor #Deconditioning/poor po intake -patient has reportedly become weak over the past 3 months -possibly due to chronic breast infection vs chronic afib -tsh pending -iron worker apprentice consulted, appreciate recs -PT/OT consulted, appreciate recs Diet: HH DVTppx: lovenox Dispo: inpatient for IV abx for L breast abscess, IVF, and rate-control for afib with rvr; echo pending; cards consult this am, appreciate recs Code: Full PCP: Mili MCLEOD H&P: Upper Level - Plan Date/Time: 05/17/19 0028 68 yo f with hx of afib s/p ablation presents with three month hx of a breast abscess, weakness, and fever admitted for sepsis 2/2 breast abscess with surrounding cellulitis vs inflammatory breast changes, Afib with RVR, hyponatremia, and hypokalemia. The abscess is nontender and able to express/ drain partially with pressure. She was given vanc and zosyn at the outside ER. She was started on a dilt drip and when we saw her, HR was in the upper 90s to low 100s. She had been given one liter of normal saline in the outside ER and repeat labs showed improvement in her sodium to 127, initial was 122. Repeat potassium was 2.7, which was replaced. CXR showed evidence of breast augmentation with concern for infectious vs mass in the left breast. We ordered a breast ultrasound to further assess. In regard to her Afib with RVR, she had an ablation last year, and stopped taking her medications on her own accord after that and has not been seen by cardiology since that time. 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 We placed a cardiology consult for the am, will repeat an echo, and continue the dilt drip in the meantime. We will also need to discuss with her if she is a candidate for anticoagulation. She has a chadsvasc score of 2. We also ordered a tsh regarding her weakness and fatigue. We replaced her low potassium and will recheck labs in the am. We ordered urine osm, na to further assess etiology of hyponatremia, thinking hypovolemic hypnatremia at this time. We will monitor her closely. She was admitted to inpatient tele. Roxann Tian MD have evaluated this patient and agree with findings/plan as outlined by internal corrosion specialist resident. Pertinent changes/additions are listed here. Addendum - Attending - Attending Attestation Date/Time: 05/17/19 1104 I personally evaluated the patient and discussed the management with Dr. Lopez/ Lina. I agree with the History, Examination, Assessment and Plan documented above with any addition or exceptions noted below.
[2019-05-17 01:04] LABS: ALT (SGPT) 46 U/L (8-55); AST (SGOT) 55 U/L (5-34); Albumin 2.3 g/dL (3.4-4.8); Alkaline Phosphatase 159 U/L (40-110); Anion Gap 13 mmol/L (10-20); BUN (Urea Nitrogen) 11 mg/dL (9.8-20.1); Bilirubin, Total 1.2 mg/dL (0.2-1.2); Calc. Creatinine Clearance 0 mL/min (70-130); Calcium 7.1 mg/dL (7.8-10.44); Carbon Dioxide 25 mmol/L (23-31); Chloride 92 mmol/L (98-107); Estimated GFR-MDRD Greater than 90; Globulin 2.4 g/dL (2.4-3.5); Glucose 113 mg/dL (80-115); Protein, Total 4.7 g/dL (6.0-8.3); Sodium 127 mmol/L (136-145)
[2019-05-17 01:07] LABS: Potassium 2.7 mmol/L (3.5-5.1)
[2019-05-17] MEDS ORDERED: Potassium Chloride 20 MEQ TAB ONE ×2 (01:14→10:29)
[2019-05-17] MEDS ORDERED: Potassium Chloride 20 MEQ TAB PO SCH ×2 (02:00→08:30)
[2019-05-17] MEDS ORDERED: Sodium Chloride 0.9% 1,000 ML IV SCH (02:00)
[2019-05-17] MEDS ORDERED: Calcium Carbonate 500 MG ChewTAB PO PRN (02:11)
[2019-05-17] MEDS: Sodium Chloride 0.9% 1,000 ML IV SCH ×3 (03:00→22:30)
[2019-05-17] MEDS ORDERED: Piperacillin/Tazobactam 3.375 GM VIAL ONE (05:35)
[2019-05-17] MEDS: Piperacillin/Tazobactam 3.375 GM in Sodium Chloride 0.9% 100 ML IVPB SCH ×4 (05:53→23:43)
[2019-05-17 06:12] LABS: #Eosinphils 0.1 thou/uL (0.0-0.7); #Lymphocytes 1.1 thou/uL (1.20-3.40); #Monocytes 1.1 thou/uL (0.11-0.59); #Neutrophils 11.9 thou/uL (1.40-6.50); %Eosinophils 0.8 % (0.0-10.0); %Lymphocytes 7.7 % (21.0-51.0); %Monocytes 7.8 % (0.0-10.0); %Neutrophils 83.7 % (42.0-75.0); Hemoglobin 11.4 g/dL (12.0-16.0); Mean Corpuscular HGB CONC 33.1 g/dL (32.0-36.0); Mean Corpuscular Hemoglobin 31.2 pg (27.0-31.0); Mean Platelet Volume 6.4 fL (7.4-10.4); Platelet Count 432 thou/uL (130-400); RBC Distribution Width 12.4 % (11.5-14.5); Red Blood Cell (RBC) Count 3.66 mill/uL (4.20-5.40); White Blood Cell (WBC) Count 14.2 thou/uL (4.8-10.8)
[2019-05-17 06:13] LABS: Bilirubin Negative (Negative); Blood, Urine Negative (Negative); Clarity Clear (Clear); Glucose, Urine (Dipstick) Normal (Negative); Leukocyte 25 Leu/uL (Negative); Nitrite Negative (Negative); Protein, Urine (Dipstick) 30 mg/dL (Neg-Trace); RBC/HPF 0-3 HPF (0-3); Transitional Epithelial 0-3 HPF (None Seen)
[2019-05-17 06:21] LABS: Bacteria/HPF 1+ HPF (None Seen)
[2019-05-17 06:33] LABS: Anion Gap 14 mmol/L (10-20); BUN (Urea Nitrogen) 10 mg/dL (9.8-20.1); Calc. Creatinine Clearance 76 mL/min (70-130); Calcium 7.9 mg/dL (7.8-10.44); Carbon Dioxide 23 mmol/L (23-31); Chloride 94 mmol/L (98-107); Estimated GFR-MDRD Greater than 90; Glucose 108 mg/dL (80-115); Potassium 3.4 mmol/L (3.5-5.1); Sodium 128 mmol/L (136-145)
[2019-05-17 06:39] LABS: Syphilis Antibody Nonreactive (Nonreactive); Syphilis Antibody Index 0.03 S/CO (<1.00 Non-Reactive)
[2019-05-17 06:40] LABS: Thyroid Stimulating Hormone 1.8232 uIU/mL (0.35-4.94)
[2019-05-17 06:41] LABS: Hep B Core Total Ab Non-Reactive (NonReactive); Hep B Core Total Index 0.03 S/CO (0-0.79); Hep B Surf Ag Non-Reactive S/CO (NonReactive)
[2019-05-17 06:42] LABS: HBSAg Index 0.15 S/CO (0-0.99)
[2019-05-17 06:53] LABS: Hep B Surf AB Non-Reactive (NonReactive)
[2019-05-17 06:54] LABS: Hep A IgM AB Non-Reactive (NonReactive); Hep A IgM S/CO 0.24 S/CO (0-0.79)
[2019-05-17 06:55] LABS: HBCM Index 0.07 S/CO (0-0.79); HIV (1/2) Antibody/Antigen Non-Reactive (NonReactive); HIV 1/2 INDEX 0.08 S/CO (<1.00); Hepatitis B Core IgM Abs Non-Reactive (NonReactive)
[2019-05-17] MEDS ORDERED: Enoxaparin Sodium 40 MG/0.4 ML SYRINGE ONE (10:29)
[2019-05-17] MEDS: Enoxaparin Sodium 40 MG/0.4 ML SYRINGE SC SCH (10:38)
--- NOTE | 2019-05-17 10:50 | PDOC.BPN ---
- Brief Progress Note Called Dr. Boyd's office for possible consult to remove breast implants, he is out of town for the week, but the office states [facility] has Dr. Nava clinical practitioner. Pt will need breast implants removed. After pt is medically stable from a cardiology standpoint will discuss possible transfer to [facility] for breast surgery. Pt's heart monitoring has been in a flutter with RVR. She is currently on a dilt drip titrating up to meet HR <100.
[2019-05-17] MEDS: Vancomycin HCl 750 MG in Sodium Chloride 0.9% 250 ML 250 ML IVPB SCH ×2 (12:57→23:44)
[2019-05-17 14:42] LABS: Anion Gap 14 mmol/L (10-20); BUN (Urea Nitrogen) 13 mg/dL (9.8-20.1); Calc. Creatinine Clearance 75 mL/min (70-130); Calcium 7.5 mg/dL (7.8-10.44); Carbon Dioxide 23 mmol/L (23-31); Chloride 93 mmol/L (98-107); Estimated GFR-MDRD Greater than 90; Glucose 108 mg/dL (80-115); Potassium 4.1 mmol/L (3.5-5.1); Sodium 126 mmol/L (136-145)
[2019-05-17] MEDS: Acetaminophen 325 MG TAB PO PRN ×2 (15:41→20:20)
[2019-05-17] MEDS: Diltiazem HCl 125 MG, Admixture Fee 1 EACH in Sodium Chloride 0.9% 100 ML IVPB SCH (20:20)
[2019-05-18] MEDS: Acetaminophen 325 MG TAB PO PRN ×4 (04:13→23:45)
[2019-05-18 04:49] LABS: Hemoglobin 10.1 g/dL (12.0-16.0); Mean Corpuscular HGB CONC 33.2 g/dL (32.0-36.0); Mean Corpuscular Hemoglobin 30.7 pg (27.0-31.0); Mean Corpuscular Volume 92.3 fL (78.0-98.0); Mean Platelet Volume 6.6 fL (7.4-10.4); Platelet Count 528 thou/uL (130-400); RBC Distribution Width 12.4 % (11.5-14.5); Red Blood Cell (RBC) Count 3.28 mill/uL (4.20-5.40); White Blood Cell (WBC) Count 19.1 thou/uL (4.8-10.8)
[2019-05-18 05:14] LABS: Anion Gap 15 mmol/L (10-20); BUN (Urea Nitrogen) 9 mg/dL (9.8-20.1); Calc. Creatinine Clearance 84 mL/min (70-130); Calcium 8.2 mg/dL (7.8-10.44); Carbon Dioxide 23 mmol/L (23-31); Chloride 97 mmol/L (98-107); Estimated GFR-MDRD Greater than 90; Glucose 117 mg/dL (80-115); Potassium 3.2 mmol/L (3.5-5.1); Sodium 132 mmol/L (136-145)
[2019-05-18] MEDS: Piperacillin/Tazobactam 3.375 GM in Sodium Chloride 0.9% 100 ML IVPB SCH ×3 (05:59→17:39)
[2019-05-18] MEDS: Sodium Chloride 0.9% 1,000 ML IV SCH (06:00)
--- NOTE | 2019-05-18 07:29 | PDOC.FM ---
- Subjective Subjective: Pt has felt sob overnight. states her pain is managed with the ibuprofen. agrees to having hte breast implants removed. no acute overnight events. 110's on tele monitoring overnight. had episodes lasting less than an hour of SR - Objective MAR Reviewed: Yes Vital Signs & Weight: Vital Signs (12 hours) Temp Pulse Resp BP BP Pulse Ox 05/18/19 03:39 97.6 F 106 H 19 123/58 L 93 L 05/17/19 23:49 112 H 20 112/57 L 05/17/19 19:50 96 Weight Weight 62.284 kg I&O: 05/17/19 05/18/19 05/19/19 06:59 06:59 06:59 Intake Total 1695.4 Output Total 400 Balance 1295.4 Result Diagrams: 05/18/19 04:10 05/18/19 04:10 Phys Exam - Physical Examination Constitutional: NAD HEENT: moist MMs, sclera anicteric Neck: supple, full ROM Respiratory: no wheezing, no rales, no rhonchi, clear to auscultation bilateral Cardiovascular: no significant murmur tachycardic Gastrointestinal: soft, non-tender, no distention Musculoskeletal: no edema, pulses present Neurological: non-focal, moves all 4 limbs Psychiatric: normal affect, A&O x 3 Skin: cap refill <2 seconds Deviation from normal: small amount of drainage expres from L breast inferior 6 o clock position. Dx/Plan (1) Atrial flutter with rapid ventricular response Code(s): I48.92 - UNSPECIFIED ATRIAL FLUTTER Status: Acute (2) Abscess of breast, left Code(s): N61.1 - ABSCESS OF THE BREAST AND NIPPLE Status: Acute (3) Hypokalemia Code(s): E87.6 - HYPOKALEMIA Status: Acute (4) Depression Code(s): F32.9 - MAJOR DEPRESSIVE DISORDER, SINGLE EPISODE, UNSPECIFIED Status : Chronic Qualifiers: Depression Type: major depressive disorder Psychotic features: without psychotic features (5) Hypertension Code(s): I10 - ESSENTIAL (PRIMARY) HYPERTENSION Status: Chronic Qualifiers: Hypertension type: essential hypertension Qualified Code(s): I10 - Essential (primary) hypertension - Plan Plan: Patient 68 yo F with hx of breast augmentation 37 years ago, HTN (not on meds), HFpEF, afib s/p ablation last year (not currently taking any meds), hiatal hernia, celiac disease admitted for L breast abscess and afib with RVR. #Sepsis 2/2 L breast abscess -no hx of mammogram, B breast implants double lumen with saline. -draining abscess for 3 months, non-completed keflex script -erythema around L nipple, possibly cellulitis vs inflammatory breast changes -started on vanc and zosyn in the ED, continue - Hx of US evidence of abscess recently. -received fluid bolus, will continue maintenance IVF - ccx taken from purulent drainage: gram stain--> gram + cocci in pairs, Gram - rods. ccx pending. - Spoke with Dr. Boyd's office, states he is out of town and [facility] has oncall plastic surgeon if pt can transfer after cleared from cardiac standpoint. #A flutter with RVR -hx of afib, not on any medications -RVR likely 2/2 sepsis from L breast abscess -EKG on admit demonstrated afib with rvr, rate 165 - tele monitoring shows consistent a flutter -started on dilt drip, on 2.5 on admit, titrated up. HR overnight: -echo: pending - Cardiology consulted for possible ablation. #Hx of HFpEF -per 08/2018 echo: EF 55-60%, diastolic dysfunction -appears hypovolemic on exam, will fluid resuscitate carefully -repeat echo ordered #HTN -not hypertensive on exam -will continue to monitor and consider starting po meds #Transaminitis -AST 81, ALT 73; no drinking hx -hep panel pending, RPR/HIV, negative, non-immune to Hep B. #Hyponatremia -sodium 122, improved to 127--> 132 with fluids -likely hypovolemic hyponatremia -urine sodium <20 -improving #Hypokalemia -potassium 3.3-> 3.2 -will replete and continue to monitor #Deconditioning/poor po intake -patient has reportedly become weak over the past 3 months -possibly due to chronic breast infection vs chronic afib -tsh 1.32 -medical intern consulted, appreciate recs -PT/OT consulted, appreciate recs Diet: DVTppx: lovenox Dispo: inpatient for IV abx for L breast abscess, IVF, and rate-control for aflutter with rvr; echo pending; cards consult this am, appreciate recs Code: Full PCP: Mili
[2019-05-18] MEDS ORDERED: Potassium Chloride 20 MEQ TAB PO SCH (07:30)
[2019-05-18] MEDS: Enoxaparin Sodium 40 MG/0.4 ML SYRINGE SC SCH (08:26)
[2019-05-18 10:44] LABS: Vancomycin, Trough 8.2 ug/mL
--- NOTE | 2019-05-18 10:44 | PDOC.EVN ---
Addendum - Attending - Attending Attestation Date/Time: 05/18/19 1043 I personally evaluated the patient and discussed the management with Dr. Agee. I agree with the History, Examination, Assessment and Plan documented in her progress note with any addition or exceptions noted below. Continue treatment for Aflutter, Cards and EP consult. Will continue IV abx but will need breast implants removed once her cardiac status is more stable.
[2019-05-18] MEDS: Vancomycin HCl 750 MG in Sodium Chloride 0.9% 250 ML 250 ML IVPB SCH (10:59)
[2019-05-18 11:00] LABS: Iron 15 ug/dL (50-170); Iron Binding Capacity, Total 166 mcg/dL (265-497)
[2019-05-18 11:22] LABS: Ferritin 233.53 ng/mL (10-291)
[2019-05-18] MEDS: Ibuprofen 600 MG TAB PO PRN (14:15)
[2019-05-18] MEDS: Diltiazem HCl 125 MG, Admixture Fee 1 EACH in Sodium Chloride 0.9% 100 ML IVPB SCH (14:37)
--- NOTE | 2019-05-18 16:12 | CON ---
DATE OF CONSULTATION: REQUESTING PHYSICIAN: Dr. Dietz. REASON FOR CONSULTATION: Atrial fibrillation and flutter. HISTORY OF PRESENT ILLNESS: This is a consultation on 68-year-old woman with a history of hypertension, heart failure with preserved ejection fraction, and atrial flutter. She has undergone atrial flutter ablation in the past. During her atrial flutter ablation, she was noted to have episodes of atrial fibrillation. She is admitted with shortness of breath. She states that she has had bronchitis and has been on antibiotics. In addition, she has had some drainage of pus near her breast. She has had a cough since March and she is here for evaluation. She says she has not been feeling palpitations until she got to the hospital. While in the hospital, she has had periods of time when she has been in normal sinus rhythm, but other periods where she has been what appears to be consistent with atrial flutter, although it is not entirely clear if this is typical or atypical. In addition, she has episodes of atrial fibrillation with occasional rapid ventricular rate. She is being treated on diltiazem drip. PAST MEDICAL HISTORY: Significant for atrial flutter status post radiofrequency ablation, hypertension, heart failure preserved ejection fraction, depression, candidal esophagitis, diverticulosis, celiac disease, hiatal hernia, breast augmentation, rhinoplasty, D and C. FAMILY HISTORY: Father from myocardial infarction at a young age. SOCIAL HISTORY: She denies smoking, alcohol, or drugs. REVIEW OF SYSTEMS: Comprehensive review of systems; she denies any change in weight, appetite, sleep, fatigue, fever, or chills. She does admit to cough and some shortness of breath. She denies palpitations, chest pain, abdominal discomfort, diarrhea, blood in the urine, blood in the stool, ataxia, depression, and anxiety. PHYSICAL EXAMINATION: GENERAL: She is comfortable, in no acute distress. VITAL SIGNS: Blood pressure is 112/57, heart rate is 112 and irregular. NECK: Reveals no increased JVD. HEART: Irregularly irregular. Normal S1 and S2. LUNGS: Show diffuse rhonchi and occasional wheezes. ABDOMEN: Soft and nontender. EXTREMITIES: No clubbing, cyanosis, or edema. DIAGNOSTIC DATA: ECG performed upon admission shows what appears to be sinus rhythm with frequent atrial premature beats. She has borderline low voltage and some nonspecific ST and T-wave abnormalities. Followup ECGs show what appears to be consistent with atypical atrial flutter or coarse atrial fibrillation as well as an ECG that looks more like typical atrial flutter. IMPRESSION: Atrial fibrillation and flutter. RECOMMENDATIONS: Ms. Sellers has both atrial fibrillation and flutter. It is unclear to me whether this is related to her respiratory illness or whether this is causing the shortness of breath. I think a reasonable approach at the current time would be to rate control her as best we can. We also should ensure that she is adequately taking anticoagulant therapy for this. She has had no success with antiarrhythmic drugs in the past and I would avoid using amiodarone unless absolutely necessary given her respiratory issues. I think a reasonable approach for her for now would be rate control, treat her underlying condition, and then as an outpatient bring her back in for an atrial fibrillation and ablation. During that time, we can also check on the previous flutter ablation that was done in the past. This would potentially have better overall outcome for her in terms of her rhythm issues. Many thanks for the opportunity to participate in the care of this patient. Please do not hesitate to contact me for any questions. Job ID: [id number]
[2019-05-18] MEDS: Albuterol Sulfate 1.25 MG/3 ML NEB NEB PRN (17:40)
--- NOTE | 2019-05-18 17:58 | RAD ---
Portable frontal chest radiograph: 05/18/2019 COMPARISON: 05/16/2019 HISTORY: Short of breath FINDINGS: Increased density noted in both lung bases, partially on the basis of bilateral breast impl ants. The left breast is asymmetrically enlarged, stable when compared to the prior examination. There is increased density in the medial left lower lobe/left lung base which suggests partial consol idation/collapse of the left lower lobe with possible associated small left pleural effusion. Lucency overlies the soft tissues of the left breast along the superior margin of the left breast imp lant which may signify recent procedure or gas-forming infection. IMPRESSION: Pleural and parenchymal opacity within the left lung base. Findings may be related to inf ectious pneumonitis/aspiration within the left lower lobe. Short-term follow-up imaging following treatment to document resolution advised. Asymmetric enlargement of the left breast with possible gas within the soft tissues, similar when com pared to 05/16/2019.
[2019-05-18 18:08] LABS: Troponin I Less than 0.010 ng/mL (< 0.028)
--- NOTE | 2019-05-18 18:09 | PDOC.BPN ---
- Brief Progress Note paged to bedside for increased SOB Patient speaking in complete sentences arguing about whether or not we should refer to coronavirus as coronavirus or COVID-19 mild wheezing on lung exam stopped fluids, albuterol neb, trop, ekg o2 sat 94% planning for EP study tomorrow
[2019-05-18] MEDS: Vancomycin 1 GM in Premix Bag 1 BAG IVPB SCH (20:51)
[2019-05-19] MEDS: Piperacillin/Tazobactam 3.375 GM in Sodium Chloride 0.9% 100 ML IVPB SCH ×2 (00:19→05:33)
[2019-05-19] MEDS: Albuterol Sulfate 1.25 MG/3 ML NEB NEB PRN (00:24)
[2019-05-19] MEDS: Morphine 2 MG/ML SYRINGE SLOW IVP PRN ×2 (00:49→04:20)
[2019-05-19] MEDS: Vancomycin 1 GM in Premix Bag 1 BAG IVPB SCH (04:20)
[2019-05-19] MEDS: Ibuprofen 600 MG TAB PO PRN ×2 (04:20→17:14)
[2019-05-19 04:54] LABS: Hemoglobin 9.2 g/dL (12.0-16.0); Mean Corpuscular HGB CONC 32.7 g/dL (32.0-36.0); Mean Corpuscular Hemoglobin 30.4 pg (27.0-31.0); Mean Platelet Volume 6.5 fL (7.4-10.4); Platelet Count 516 thou/uL (130-400); RBC Distribution Width 12.4 % (11.5-14.5); Red Blood Cell (RBC) Count 3.03 mill/uL (4.20-5.40)
[2019-05-19 05:25] LABS: Anion Gap 18 mmol/L (10-20); BUN (Urea Nitrogen) 12 mg/dL (9.8-20.1); Calc. Creatinine Clearance 87 mL/min (70-130); Carbon Dioxide 20 mmol/L (23-31); Chloride 99 mmol/L (98-107); Estimated GFR-MDRD Greater than 90; Glucose 99 mg/dL (80-115); Potassium 3.5 mmol/L (3.5-5.1); Sodium 133 mmol/L (136-145)
[2019-05-19] MEDS: Acetaminophen 325 MG TAB PO PRN (05:32)
[2019-05-19] MEDS: Morphine 4 MG/ML VIAL SLOW IVP PRN ×3 (06:37→21:41)
--- NOTE | 2019-05-19 06:38 | PDOC.FM ---
- Subjective Subjective: Pt complaining of dyspnea this morning that is not improved with supplemental O2. Her sats remain normal. Agrees to EP study later today. Denies any chest pain, nausea, vomiting. Does have diaphoresis. No acute events overnight. - Objective Vital Signs & Weight: Vital Signs (12 hours) Temp Pulse Resp BP BP Pulse Ox 05/19/19 04:25 96 05/19/19 03:50 98.9 F 95 20 128/56 L 96 05/19/19 00:52 97 20 140/62 100 05/19/19 00:24 78 98 05/18/19 21:30 100 05/18/19 20:48 98.9 F 81 16 130/60 94 L 05/18/19 18:39 99 Weight Admit Weight 55.79 kg Weight 62.596 kg I&O: 05/17/19 05/18/19 05/19/19 06:59 06:59 06:59 Intake Total 1695.4 2900 Output Total 400 1050 Balance 1295.4 1850 Result Diagrams: 05/19/19 04:21 05/19/19 04:21 Phys Exam - Physical Examination Mild-moderate distress noted HEENT: moist MMs Neck: no JVD, full ROM Respiratory: clear to auscultation bilateral Tachypneic Irregularly irregular Gastrointestinal: soft, non-tender Musculoskeletal: no edema, pulses present Neurological: non-focal, moves all 4 limbs Psychiatric: normal affect, A&O x 3 Skin: no rash, cap refill <2 seconds Dx/Plan (1) Abscess of breast, left Code(s): N61.1 - ABSCESS OF THE BREAST AND NIPPLE Status: Acute (2) Atrial fibrillation with RVR Code(s): I48.91 - UNSPECIFIED ATRIAL FIBRILLATION Status: Acute (3) Sepsis Code(s): A41.9 - SEPSIS, UNSPECIFIED ORGANISM Status: Resolved - Plan Plan: Patient 68 yo F with hx of breast augmentation 37 years ago, HTN (not on meds), HFpEF, afib s/p ablation last year (not currently taking any meds), hiatal hernia, celiac disease admitted for L breast abscess and afib with RVR. Sepsis 2/2 L breast abscess -draining abscess for 3 months, non-completed keflex script -on vanc and zosyn -received fluid bolus, will continue maintenance IVF -culture: proteus and psuedomonas - both pansensitive -Spoke with Dr. Boyd's office, states he is out of town and [facility] has oncall plastic surgeon if pt can transfer after cleared from cardiac standpoint. A flutter with RVR -hx of afib, not on any medications -RVR likely 2/2 sepsis from L breast abscess -EKG on admit demonstrated afib with rvr, rate 165 -dilt drip at 10 -Cardiology consulted, requested EP consult Dyspnea -tachypneic this morning, normal O2 sat -CXR yesterday showed LLL pneumonitis -2view CXR vs CTA today Hx of HFpEF -per 08/2018 echo: EF 55-60%, diastolic dysfunction -appears hypovolemic on exam, will fluid resuscitate carefully -repeat echo: largely unchanged HTN -not hypertensive on exam -will continue to monitor and consider starting po meds Transaminitis -AST 81, ALT 73; no drinking hx -hep panel pending, RPR/HIV, negative, non-immune to Hep B. -consider outpt workup Diet: HH DVTppx: lovenox Code: Full Dispo: inpatient for IV abx for L breast abscess, IVF, and rate-control for aflutter with rvr; EP consult. PCP: Mili
--- NOTE | 2019-05-19 08:52 | RAD ---
Chest 2 views HISTORY: Follow-up. Chest pain. COMPARISON: 05/18/2019. FINDINGS: Cardiac silhouette is magnified and partially obscured by left pleural fluid and bibasilar infiltrates have progressed slightly. Small amount right pleural fluid and atelectasis at the right lung base. Pulmonary vasculature remains slightly engorged. Mediastinum midline. No evidence of pneumothorax. Gas within the air-fluid level at the left anterior chest has progressed since the recent exams. On t he lateral view, the gas is clearly shown to overlie the left breast. Small pockets of gas tract inferiorly and anteriorly along the anterior aspect of the breast/prosthesis. laboratory monitor leads overlie the chest. IMPRESSION: Increasing gas within the fluid/gas collection at the left breast. Infected implant or re cent surgery? Slight interval increase in left pleural fluid and basilar infiltrate. Small right pleural effusion.
[2019-05-19] MEDS: Enoxaparin Sodium 40 MG/0.4 ML SYRINGE SC SCH (09:09)
[2019-05-19] MEDS: Ferrous Sulfate 325 MG TAB PO SCH (09:09)
[2019-05-19] MEDS: Cefepime 2 GM in Sodium Chloride 0.9% 100 ML IVPB SCH (13:11)
[2019-05-19] MEDS ORDERED: Iopamidol-370 76% 500 ML 1 ML ONE (13:57)
--- NOTE | 2019-05-19 14:20 | CT ---
CT arteriogram chest with IV contrast and 3-D imaging HISTORY: Dyspnea. Elevated d-dimer. COMPARISON: 08/21/2018. FINDINGS: There is good contrast opacification pulmonary arteries and thoracic aorta with normal bran lissette of the great vessels at the aortic arch. Moderate amount of bilateral pleural fluid with compressive atelectasis at each lung base. Subtle wili undglass peripheral parenchymal opacity involving the upper lobes. No evidence of pneumothorax. Nonspecific lymph nodes throughout the mediastinum. Rupture of both breast implants again demonstrated. The fluid distention of the fibrous capsule of th e left breast implant is again demonstrated. Extensive gas is now evident within and outside of the implant envelope. Subtle thickening and irregularity of the capsular wall. IMPRESSION: No CT evidence of pulmonary embolus. Bilateral breast implant rupture. Extensive gas throughout the expanded fibrous capsule of the left b reast implant has developed since the prior exam. Concerning for infection. Correlation with clinical findings required. Bilateral pleural effusions and bibasilar atelectasis. Cause is not evident.
--- NOTE | 2019-05-19 14:48 | EKG ---
Test Reason : Blood Pressure : / mmHG Vent. Rate : 108 BPM Atrial Rate : 100 BPM P-R Int : 150 ms QRS Dur : 086 ms QT Int : 398 ms P-R-T Axes : 068 047 064 degrees QTc Int : 533 ms Sinus rhythm with Premature supraventricular complexes and with frequent Premature ventricular comple xes Possible Left atrial enlargement Prolonged QT Abnormal ECG Confirmed by MARIANN MARTIN M.D. ([id number]), editor continuity and script [place] MCNALLY ([id number]) on 05/19/2019 2:47:45 PM Referred By: Confirmed By:MARIANN MARTIN M.D.
--- NOTE | 2019-05-19 14:57 | PDOC.CPN ---
- Subjective Date: 05/19/19 Time: 14:55 Interval history: No complaints. Still with AF/Fl - Review of Systems Respiratory: denies: cough, congestion, shortness of breath, exercise intolerance Cardiovascular: denies: chest pain, palpitation, edema, paroxysmal nocturnal dyspnea, orthopnea Neurological: denies: numbness, syncope, seizure, weakness - Objective Allergies/Adverse Reactions: Allergies Allergy/AdvReac Type Severity Reaction Status Date / Time No Known Allergies Allergy Verified 10/06/18 12:14 Visit Medications: Current Medications Acetaminophen (Tylenol) 650 mg PO Q4H PRN PRN Reason: Headache/Fever/Mild Pain (1-3) Last Admin: 05/19/19 05:32 Dose: 650 mg Albuterol Sulfate (Albuterol Sulfate) 1.25 mg NEB Q8H PRN PRN Reason: Wheezing Last Admin: 05/19/19 00:24 Dose: 1.25 mg Calcium Carbonate (Tums) 1,000 mg PO Q4H PRN PRN Reason: Heartburn or Indigestion Enoxaparin Sodium (Lovenox) 40 mg SC 0900 FIOR Last Admin: 05/19/19 09:09 Dose: 40 mg Ferrous Sulfate (Feosol) 325 mg PO [facility]AM-[facility] Last Admin: 05/19/19 09:09 Dose: 325 mg Diltiazem HCl 125 mg/Miscellaneous Medication 1 each/ Sodium Chloride 125 mls @ 0 mls/hr IVPB INF FIOR; Protocol Last Admin: 05/18/19 14:37 Dose: 125 mls Cefepime HCl 2 gm/ Sodium (Chloride) 100 mls @ 200 mls/hr IVPB Q12H FIOR Last Admin: 05/19/19 13:11 Dose: 100 mls Ibuprofen (Motrin) 600 mg PO Q6H PRN PRN Reason: Pain Last Admin: 05/19/19 04:20 Dose: 600 mg Morphine Sulfate (Morphine) 4 mg SLOW IVP Q4H PRN PRN Reason: Moderate to Severe Pain (6-10) Last Admin: 05/19/19 06:37 Dose: 4 mg Sodium Chloride (Flush - Normal Saline) 10 ml IVF Q12HR FIOR Last Admin: 05/19/19 09:09 Dose: 10 ml Sodium Chloride (Flush - Normal Saline) 10 ml IVF PRN PRN PRN Reason: Saline Flush Vital Signs & Weight: Vital Signs Temp Pulse Resp BP BP Pulse Ox 05/19/19 08:00 97.5 F L 71 22 H 129/60 93 L 05/19/19 04:25 96 05/19/19 03:50 98.9 F 95 20 128/56 L 96 Admit Weight 122 lb 15.934 oz Weight 138 lb - Physical Exam General: alert & oriented x3, appears well, no apparent distress HEENT: mucus membranes moist Neck: supple neck Cardiac: other (IRR IRR) Lungs: clear to auscultation Neuro: grossly intact Abdomen: soft Extremities: no cyanosis Musculoskeletal: normal range of motion - Labs Result Diagrams: 05/19/19 04:21 05/19/19 04:21 Troponin/CKMB Troponin I Less than 0.010 ng/mL (< 0.028) 05/18/19 17:43 - Assessment/Plan Assessment/Plan: 1. Paroxysmal AF' s/p previous ablation 2. AF 3. Breast infection 4. Decreased Hgb Continue cardizem gtt. Patient needs full dose ACT given CHADS2-VASc. Would increase lovenox to therapeutic, but H/H dropping in last few days. May need FOBT first. Cirilo Dietz MD-Pt seen and exaimned. Agree with above. Add PO CCB Hold ACT given downtrending Hb titrate down IV CCB once PO CCB manages HR
--- NOTE | 2019-05-19 15:24 | CON ---
DATE OF CONSULTATION: Please see the note from Dr. Mckeon, for which I agree. The patient was seen, discussed, and examined with the residents by bedside. No changes in the breast abscess. Still on antibiotics for that. Still a little bit of drainage. Intermittently having some supraventricular tachycardia issues with her A flutter. Cardiology is aware, EPS sounds like once here until Tuesday as long as she is stable. The wound is growing out gram-negative rods and gram-positive cocci as well and is still on vancomycin and Zosyn. No other major changes or complaints currently. Basically we are waiting to see how Cardiology proceeds while we may end up having a transfer to [facility] for Plastic Surgery to evaluate; however, it does sound like plastic surgeon who sees patients at [facility] may be around in 2 days. Job ID: [id number]
[2019-05-20] MEDS: Cefepime 2 GM in Sodium Chloride 0.9% 100 ML IVPB SCH ×2 (00:55→12:41)
[2019-05-20] MEDS: Morphine 4 MG/ML VIAL SLOW IVP PRN ×5 (01:37→20:22)
[2019-05-20 04:38] LABS: Hemoglobin 10.1 g/dL (12.0-16.0); Mean Corpuscular HGB CONC 31.5 g/dL (32.0-36.0); Mean Corpuscular Hemoglobin 29.4 pg (27.0-31.0); Mean Corpuscular Volume 93.4 fL (78.0-98.0); Mean Platelet Volume 6.7 fL (7.4-10.4); Platelet Count 581 thou/uL (130-400); RBC Distribution Width 12.7 % (11.5-14.5); Red Blood Cell (RBC) Count 3.42 mill/uL (4.20-5.40); White Blood Cell (WBC) Count 18.1 thou/uL (4.8-10.8)
[2019-05-20 05:03] LABS: Anion Gap 13 mmol/L (10-20); BUN (Urea Nitrogen) 11 mg/dL (9.8-20.1); Calc. Creatinine Clearance 85 mL/min (70-130); Calcium 8.6 mg/dL (7.8-10.44); Carbon Dioxide 23 mmol/L (23-31); Chloride 98 mmol/L (98-107); Estimated GFR-MDRD Greater than 90; Glucose 108 mg/dL (80-115); Potassium 3.1 mmol/L (3.5-5.1); Sodium 131 mmol/L (136-145)
--- NOTE | 2019-05-20 06:09 | PDOC.FM ---
- Subjective Subjective: Pt states she is feeling much better overnight. Improvement in her shortness of breath. Denies any complaints at this time. Had a couple instances of elevation in heart rate overnight. - Objective Vital Signs & Weight: Vital Signs (12 hours) Temp Pulse Resp BP Pulse Ox 05/20/19 05:14 97.8 F 98 17 111/58 L 90 L 05/20/19 04:00 122 H 128/78 95 05/19/19 23:24 112 H 122/67 05/19/19 20:00 98.9 F 88 18 108/56 L 95 Weight Admit Weight 55.79 kg Weight 62.959 kg I&O: 05/18/19 05/19/19 05/20/19 06:59 06:59 06:59 Intake Total 1695.4 2900 1080 Output Total 400 1050 600 Balance 1295.4 1850 480 Result Diagrams: 05/20/19 04:17 05/20/19 04:17 Phys Exam - Physical Examination Constitutional: NAD HEENT: sclera anicteric Neck: supple, full ROM Respiratory: wheezing present (scattered diffuse wheeze, poor inspiration) tachy, irreg irreg rhythm Gastrointestinal: soft, non-tender Musculoskeletal: no edema, pulses present Neurological: moves all 4 limbs Psychiatric: normal affect, A&O x 3 Skin: no rash, cap refill <2 seconds Dx/Plan (1) Abscess of breast, left Code(s): N61.1 - ABSCESS OF THE BREAST AND NIPPLE Status: Acute (2) Atrial fibrillation with RVR Code(s): I48.91 - UNSPECIFIED ATRIAL FIBRILLATION Status: Acute (3) Sepsis Code(s): A41.9 - SEPSIS, UNSPECIFIED ORGANISM Status: Resolved - Plan Plan: Patient 68 yo F with hx of breast augmentation 37 years ago, HTN (not on meds), HFpEF, afib s/p ablation last year (not currently taking any meds), hiatal hernia, celiac disease admitted for L breast abscess and afib with RVR. Sepsis 2/2 L breast abscess -continue maintenance IVF -culture: proteus and psuedomonas - both pansensitive -changed to cefepime yesterday per sensitivities -will consider small bedside I&D vs Gen Surg consult as Plastics is out of town to assist with drainage before implant can be removed A flutter with RVR -oral dilt started last night, will titrate down drip -Cardiology consulted, requested EP consult, suggested outpt workup for ablation Anemia -Hgb was down trending until today -FOBT ordered -Once bleed r/o will start pt on therapeutic dose of lovenox for her arrhythmia Dyspnea -CXR yesterday showed LLL pneumonitis -CTA showed bibasilar pleural effusions and atelectasis -SOB likely related to compression from growing abscess with gas formation Hx of HFpEF -per 08/2018 echo: EF 55-60%, diastolic dysfunction -repeat echo: largely unchanged HTN -not hypertensive on exam -will continue to monitor and consider starting po meds Transaminitis -AST 81, ALT 73; no drinking hx -hep panel pending, RPR/HIV, negative, non-immune to Hep B. -consider outpt workup Diet: HH DVTppx: lovenox Code: Full Dispo: inpatient for IV abx for L breast abscess, rate control titration. PCP: [facility]
[2019-05-20] MEDS ORDERED: Potassium Chloride 20 MEQ TAB PO SCH (07:00)
[2019-05-20] MEDS: Ferrous Sulfate 325 MG TAB PO SCH (09:16)
[2019-05-20] MEDS: Enoxaparin Sodium 40 MG/0.4 ML SYRINGE SC SCH (09:17)
[2019-05-20] MEDS: Diltiazem HCl 125 MG, Admixture Fee 1 EACH in Sodium Chloride 0.9% 100 ML IVPB SCH (10:40)
[2019-05-20] MEDS ORDERED: Digoxin 0.25 MG TAB PO SCH (11:00)
--- NOTE | 2019-05-20 11:58 | PRG ---
DATE OF SERVICE: 05/20/2019 The patient is seen, evaluated, discussed with the resident. Please see Dr. Mckeon's note for which I agree. Here for the breast abscess around the former breast implant and also still having issues with tachyarrhythmia, atrial flutter issues. Both on a nifedipine drip and p.o. diltiazem. Cultures of the wound have grown out both Pseudomonas and Proteus. This seems pretty pansensitive. On cefepime and should be covered. Question on her is we are going to get EPS to see her probably tomorrow, it sounds like. Need to watch her downtrending hemoglobin. Continue same antibiotics and General Surgery to consider incision and drainage or seeing a Plastics to see her and do that tomorrow as they are not on-call here until next week, which I tomorrow though. Job ID: [id number]
[2019-05-20] MEDS: Ibuprofen 600 MG TAB PO PRN (13:18)
--- NOTE | 2019-05-20 13:41 | PDOC.CPN ---
- Subjective Date: 05/20/19 Time: 11:40 Interval history: Patient with c/o right shoulder pain. Otherwise fine - Review of Systems General: denies: fever/chills, weight/appetite/sleep changes, night sweats, fatigue Respiratory: denies: cough, congestion, shortness of breath, exercise intolerance Cardiovascular: denies: chest pain, palpitation, edema, paroxysmal nocturnal dyspnea, orthopnea Gastrointestinal: denies: nausea, vomiting, diarrhea, constipation, abd pain, GI bleeding Musculoskeletal: denies: pain, tenderness, stiffness, swelling, arthritis/ arthralgias Neurological: denies: numbness, syncope, seizure, weakness - Objective Allergies/Adverse Reactions: Allergies Allergy/AdvReac Type Severity Reaction Status Date / Time No Known Allergies Allergy Verified 10/06/18 12:14 Visit Medications: Current Medications Acetaminophen (Tylenol) 650 mg PO Q4H PRN PRN Reason: Headache/Fever/Mild Pain (1-3) Last Admin: 05/19/19 05:32 Dose: 650 mg Albuterol Sulfate (Albuterol Sulfate) 1.25 mg NEB Q8H PRN PRN Reason: Wheezing Last Admin: 05/19/19 00:24 Dose: 1.25 mg Calcium Carbonate (Tums) 1,000 mg PO Q4H PRN PRN Reason: Heartburn or Indigestion Digoxin (Lanoxin) 0.25 mg PO 1700 COUNT INCLUDES [facility] Stop: 05/20/19 18:00 Digoxin (Lanoxin) 0.125 mg PO DAILY COUNT [facility]CLUDES [facility] Diltiazem HCl (Cardizem) 30 mg PO TID COUNT [facility]CLUDES [facility] Last Admin: 05/20/19 09:17 Dose: 30 mg Enoxaparin Sodium (Lovenox) 60 mg SC 0900,2100 COUNT INCLUDES THE [facility] Ferrous Sulfate (Feosol) 325 mg PO [facility] Last Admin: 05/20/19 09:16 Dose: 325 mg Diltiazem HCl 125 mg/Miscellaneous Medication 1 each/ Sodium Chloride 125 mls @ 0 mls/hr IVPB INF FIOR; Protocol Last Admin: 05/20/19 10:40 Dose: 125 mls Cefepime HCl 2 gm/ Sodium (Chloride) 100 mls @ 200 mls/hr IVPB Q12H COUNT INCLUDES [facility] Last Admin: 05/20/19 12:41 Dose: 100 mls Ibuprofen (Motrin) 600 mg PO Q6H PRN PRN Reason: Pain Last Admin: 05/20/19 13:18 Dose: 600 mg Morphine Sulfate (Morphine) 4 mg SLOW IVP Q4H PRN PRN Reason: Moderate to Severe Pain (6-10) Last Admin: 05/20/19 10:40 Dose: 4 mg Sodium Chloride (Flush - Normal Saline) 10 ml IVF Q12HR FIOR Last Admin: 05/20/19 09:17 Dose: 10 ml Sodium Chloride (Flush - Normal Saline) 10 ml IVF PRN PRN PRN Reason: Saline Flush Vital Signs & Weight: Vital Signs Temp Pulse Resp BP BP Pulse Ox 05/20/19 12:38 96 05/20/19 12:00 99 143/66 H 05/20/19 08:00 97.6 F 110 H 22 H 129/60 92 L 05/20/19 05:14 97.8 F 98 17 111/58 L 90 L 05/20/19 04:00 122 H 128/78 95 Admit Weight 122 lb 15.934 oz Weight 138 lb 12.8 oz - Physical Exam General: alert & oriented x3, appears well, no apparent distress HEENT: mucus membranes moist Neck: supple neck Cardiac: other (IRR IRR) Lungs: normal breath sounds Neuro: grossly intact Abdomen: soft Extremities: no edema Skin: clear - Labs Result Diagrams: 05/20/19 04:17 05/20/19 04:17 Troponin/CKMB Troponin I Less than 0.010 ng/mL (< 0.028) 05/18/19 17:43 - Assessment/Plan Assessment/Plan: 1. Paroxysmal AF' s/p previous ablation 2. AF 3. Breast infection 4. Decreased Hgb Still with AF, RVR present but improved. PO cardizem started. Digoxin added. Discussed risk of CVA with patient and ACT including current H/H. She says to start her on full dose ACT without FOBT. Will increase lovenox. Continue iron supplementation. Await surgical input.
[2019-05-20] MEDS: Albuterol Sulfate 1.25 MG/3 ML NEB NEB PRN (15:01)
[2019-05-20] MEDS ORDERED: Digoxin 0.125 MG TAB PO SCH (17:00)
[2019-05-20] MEDS ORDERED: hydrOXYzine Pamoate 25 mg Capsule PO PRN (17:48)
[2019-05-20] MEDS: Enoxaparin Sodium 60 MG/0.6 ML SYRINGE SC SCH (20:21)
[2019-05-21] MEDS: Morphine 4 MG/ML VIAL SLOW IVP PRN ×5 (00:22→14:11)
[2019-05-21] MEDS: Cefepime 2 GM in Sodium Chloride 0.9% 100 ML IVPB SCH ×2 (00:22→11:59)
[2019-05-21] MEDS: Diltiazem HCl 125 MG, Admixture Fee 1 EACH in Sodium Chloride 0.9% 100 ML IVPB SCH ×2 (00:30→14:07)
[2019-05-21 03:23] VITALS: BMI 24.3
[2019-05-21 04:41] LABS: Hemoglobin 9.1 g/dL (12.0-16.0); Mean Corpuscular HGB CONC 32.7 g/dL (32.0-36.0); Mean Corpuscular Hemoglobin 30.5 pg (27.0-31.0); Mean Corpuscular Volume 93.1 fL (78.0-98.0); Mean Platelet Volume 6.6 fL (7.4-10.4); Platelet Count 574 thou/uL (130-400); Red Blood Cell (RBC) Count 2.99 mill/uL (4.20-5.40); White Blood Cell (WBC) Count 19.7 thou/uL (4.8-10.8)
[2019-05-21 05:04] LABS: Anion Gap 13 mmol/L (10-20); BUN (Urea Nitrogen) 19 mg/dL (9.8-20.1); Calc. Creatinine Clearance 78 mL/min (70-130); Calcium 8.5 mg/dL (7.8-10.44); Carbon Dioxide 24 mmol/L (23-31); Chloride 97 mmol/L (98-107); Estimated GFR-MDRD 85; Glucose 136 mg/dL (80-115); Sodium 130 mmol/L (136-145)
--- NOTE | 2019-05-21 06:43 | PDOC.FM ---
- Subjective Subjective: tele: 70-80's A flutter overnight states she has a hx of depression and was told she might be bipolar in the past. Pt denies any periods of time when she could not sleep or felt increased energy for extended times. Has been on depression meds off/on since . Pt c/o SOB and anxiousness. denies CP. - Objective Vital Signs & Weight: Vital Signs (12 hours) Temp Pulse Resp BP BP Pulse Ox 05/21/19 03:26 97.6 F 89 18 126/61 95 05/21/19 00:24 72 20 136/65 94 L 05/21/19 00:00 80 123/68 05/20/19 20:16 98.9 F 74 16 126/64 95 Weight Admit Weight 55.79 kg Weight 62.142 kg I&O: 05/19/19 05/20/19 05/21/19 06:59 06:59 06:59 Intake Total 2900 1080 1270 Output Total 1050 600 450 Balance 1850 480 820 Result Diagrams: 05/21/19 04:21 05/21/19 04:21 Phys Exam - Physical Examination Constitutional: NAD HEENT: moist MMs, sclera anicteric Neck: no nodes, no JVD, full ROM Respiratory: wheezing present, clear to auscultation bilateral Breast assymetric. L breast indurated at 6 oclock position. Cardiovascular: no rub irregular rhythm, regular rate Gastrointestinal: soft, no distention, positive bowel sounds Musculoskeletal: no edema, pulses present Neurological: non-focal, moves all 4 limbs Psychiatric: A&O x 3 Deviation from normal: anxious affect, pressured speech Skin: no rash, normal turgor, cap refill <2 seconds Dx/Plan (1) Atrial flutter with rapid ventricular response Code(s): I48.92 - UNSPECIFIED ATRIAL FLUTTER Status: Acute (2) Abscess of breast, left Code(s): N61.1 - ABSCESS OF THE BREAST AND NIPPLE Status: Acute (3) Hypokalemia Code(s): E87.6 - HYPOKALEMIA Status: Acute (4) Depression Code(s): F32.9 - MAJOR DEPRESSIVE DISORDER, SINGLE EPISODE, UNSPECIFIED Status : Chronic Qualifiers: Depression Type: major depressive disorder Psychotic features: without psychotic features (5) Hypertension Code(s): I10 - ESSENTIAL (PRIMARY) HYPERTENSION Status: Chronic Qualifiers: Hypertension type: essential hypertension Qualified Code(s): I10 - Essential (primary) hypertension - Plan Plan: Patient 68 yo F with hx of breast augmentation 37 years ago, HTN (not on meds), HFpEF, afib s/p ablation last year (not currently taking any meds), hiatal hernia, celiac disease admitted for L breast abscess and afib/aflutter with RVR. Sepsis 2/2 L breast abscess -continue maintenance IVF -culture: proteus and psuedomonas - both pansensitive -changed to cefepime per sensitivities -Dr. Boyd consulted. Appreciate recommendations. A flutter with RVR -oral dilt and ggt. addition of digoxin. -Cardiology consulted, requested EP consult, suggested outpt workup for ablation , and th lovenox. - rate 70-80's overnight. Iron Deficiency Anemia - iron 15, iron saturation 9% -FOBT ordered -continue PO iron Dyspnea -CXR showed LLL pneumonitis -CTA showed bibasilar pleural effusions and atelectasis -SOB likely related to compression from growing abscess with gas formation, continue cefepime Hx of HFpEF -per 08/2018 echo: EF 55-60%, diastolic dysfunction -repeat echo: largely unchanged HTN -not hypertensive on exam -will continue to monitor and consider starting po meds Transaminitis -AST 81, ALT 73; no drinking hx -hep panel pending, RPR/HIV, negative, non-immune to Hep B. -consider outpt workup Diet: HH DVTppx: lovenox Code: Full Dispo: inpatient for IV abx for L breast abscess, rate control titration. Consulting plastic surgeon. PCP: [facility] Clarke - Attending - Attending Attestation Date/Time: 05/21/19 0535 I personally evaluated the patient and discussed the management with Dr. Agee. I agree with the History, Examination, Assessment and Plan documented above with any addition or exceptions noted below.
[2019-05-21 08:38] VITALS: TEMP 98.2
[2019-05-21] MEDS ORDERED: Digoxin 0.125 MG TAB PO SCH (09:00)
[2019-05-21] MEDS: Enoxaparin Sodium 60 MG/0.6 ML SYRINGE SC SCH (09:05)
[2019-05-21] MEDS: Ferrous Sulfate 325 MG TAB PO SCH (09:05)
[2019-05-21] MEDS ORDERED: Sodium Chloride 0.9% 1,000 ML IV SCH (09:15)
[2019-05-21] MEDS: Albuterol Sulfate 1.25 MG/3 ML NEB NEB PRN (09:25)
[2019-05-21] MEDS ORDERED: Furosemide 40 MG/4 ML VIAL SLOW IVP SCH (10:30)
--- NOTE | 2019-05-21 10:48 | RAD ---
PA AND LATERAL CHEST: Date: 05/21/2019 INDICATION: History of shortness of breath. COMPARISON: Prior chest radiograph dated 05/19/2019. FINDINGS: The air fluid level seen within the region of the left breast is stable appearing. There are bilatera l pleural effusions and bibasilar atelectasis. The mild cardiomegaly is similar appearing. Osseous st ructures are similar appearing. IMPRESSION: 1. Persistent fluid and gas collection within the left breast. 2. Persistent bibasilar pleural and parenchymal opacity consistent with bilateral pleural effusions and bibasilar atelectasis. 3. Stable mild cardiomegaly. POS: BH
--- NOTE | 2019-05-21 11:46 | PDOC.CPN ---
- Subjective Date: 05/21/19 Time: 11:54 Interval history: The pt seen and examined. No overnight events. No cardiac complaints. - Objective Allergies/Adverse Reactions: Allergies Allergy/AdvReac Type Severity Reaction Status Date / Time No Known Allergies Allergy Verified 10/06/18 12:14 Visit Medications: Current Medications Acetaminophen (Tylenol) 650 mg PO Q4H PRN PRN Reason: Headache/Fever/Mild Pain (1-3) Last Admin: 05/19/19 05:32 Dose: 650 mg Albuterol Sulfate (Albuterol Sulfate) 1.25 mg NEB Q8H PRN PRN Reason: Wheezing Last Admin: 05/21/19 09:25 Dose: 1.25 mg Calcium Carbonate (Tums) 1,000 mg PO Q4H PRN PRN Reason: Heartburn or Indigestion Digoxin (Lanoxin) 0.125 mg PO DAILY [facility] Last Admin: 05/21/19 09:04 Dose: 0.125 mg Diltiazem HCl (Cardizem) 30 mg PO TID [facility] Last Admin: 05/21/19 09:04 Dose: 30 mg Enoxaparin Sodium (Lovenox) 60 mg SC 0900,2100 [facility] Last Admin: 05/21/19 09:05 Dose: 60 mg Ferrous Sulfate (Feosol) 325 mg PO QAM-[facility] Last Admin: 05/21/19 09:05 Dose: 325 mg Furosemide (Lasix) 40 mg SLOW IVP NOW [facility] Stop: 05/21/19 14:00 Hydroxyzine Pamoate (Vistaril) 25 mg PO TID PRN PRN Reason: Anxiety Last Admin: 05/20/19 20:22 Dose: 25 mg Diltiazem HCl 125 mg/Miscellaneous Medication 1 each/ Sodium Chloride 125 mls @ 0 mls/hr IVPB INF FIOR; Protocol Last Admin: 05/21/19 00:30 Dose: 125 mls Cefepime HCl 2 gm/ Sodium (Chloride) 100 mls @ 200 mls/hr IVPB Q12H FIOR Last Admin: 05/21/19 00:22 Dose: 100 mls Ibuprofen (Motrin) 600 mg PO Q6H PRN PRN Reason: Pain Last Admin: 05/20/19 13:18 Dose: 600 mg Morphine Sulfate (Morphine) 4 mg SLOW IVP Q4H PRN PRN Reason: Moderate to Severe Pain (6-10) Last Admin: 05/21/19 04:22 Dose: 4 mg Sodium Chloride (Flush - Normal Saline) 10 ml IVF Q12HR FIOR Last Admin: 05/21/19 09:05 Dose: 10 ml Sodium Chloride (Flush - Normal Saline) 10 ml IVF PRN PRN PRN Reason: Saline Flush Vital Signs & Weight: Vital Signs Temp Pulse Resp BP BP Pulse Ox 05/21/19 09:25 97 28 H 05/21/19 09:04 97 05/21/19 08:00 98.2 F 103 H 19 121/58 L 93 L 05/21/19 03:26 97.6 F 89 18 126/61 95 05/21/19 00:24 72 20 136/65 94 L 05/21/19 00:00 80 123/68 Admit Weight 122 lb 15.934 oz Weight 137 lb - Physical Exam General: alert & oriented x3 HEENT: mucus membranes moist Neck: supple neck Cardiac: irregularly regular - Labs Result Diagrams: 05/21/19 04:21 05/21/19 04:21 Troponin/CKMB Troponin I Less than 0.010 ng/mL (< 0.028) 05/18/19 17:43 - Telemetry Supraventricular conduction: atrial flutter - Assessment/Plan Assessment/Plan: 1. Parox Aflutter with RVR and s/p previous ablation in 2019 - well controlled HR with Digoxin, Diltiazem, and Lovenox; 2. Breast infection 3. Anemia 4. HTN 5. Transaminitis 6. Bilat plural effusion - Lasix IV x one given today MAR reviewed *Echo on 05/18/2019 with EF 55-60% and mild MR and TR Pt. seen and eval. by me. I agree with the A/P by the MEDICAL RECEPTION SPECIALIST. She seems anxious and was requesting morphine to help her breath. She is using O2 and Sats> 90%. I will speak with the Family practice service and see if there has been a foreign exchange student coordinator the weekend. I will ask for a CXR and will discuss with Dr. Boyd about proceding with removal of infected breast implant. The WBC continues to increase. Chest: bilateral coarse rhonchi. Irreg. rhythm. No edema. gjmays
[2019-05-21 13:30] VITALS: BP 138/63
--- NOTE | 2019-05-21 15:31 | PQF ---
MAYNOR ADAMSSALUD *r [id number] [facility]-292 [id number] CLINICAL DOCUMENTATION IMPROVEMENT CLARIFICATION FORM: ICD-10 Updated PLEASE DO AN ADDENDUM TO THE PROGRESS NOTE WITH ANY DOCUMENTATION UPDATES OR ADDITIONS AND CARRY THROUGH TO DC SUMMARY. THANK YOU. DATE: 05/21/2019 ATTN: DR. Lacey TUBBS Please exercise your independent, professional judgment in responding to the clarification form. Clinical indicators are provided on the bottom of this form for your review. Please check appropriate box(s): [ ] Acute Respiratory Failure without hypoxia 2/2 pulmonary edema O2 saturation on pulse ox lowest 90% In addition, please specify: Present on Admission (POA): [ ] Yes [ ] No [ * ] Unable to determine For continuity of documentation, please document condition throughout progress notes and discharge summary. Thank You. CLINICAL INDICATORS - SIGNS / SYMPTOMS / LABS / RESULTS AND LOCATION IN MR 05/17 PN (SULY) PT HAS FELT SOB OVERNIGHT. 05/17 PN (JAYNE) PAGED TO BEDSIDE FOR INCREASED SOB, MILD WHEEZING ON LUNG EXAM. 05/18 PN ( JOE) PT COMPLAINING OF DYSPNEA THIS MORNING THAT IS NOT IMPROVED WITH SUPPLEMENTAL O2. HER SATS REMAIN NORMAL. 05/18 CT/CTA, ANGIO CHEST : IMPRESSION: BILATERAL PLEURAL EFFUSIONS AND BIBASILAR ATELECTASIS. 05/19 PN (DYSPNEA- CXR YESTERDAY SHOWED LLL PNEUMONITIS, CTA SHOWED BIBASILAR PLEURAL EFFUSIONS ATELECTASIS, SOB LIKELY RELATED TO COMPRESSION FROM GROWING ABSCESS WITH GAS FORMATION. 05/20 PN (ARATA) A/P: 6. BILATERAL PLEURAL EFFUSION- LASIX IV X ONCE GIVEN TODAY. RISK: DX SEPSIS, ATRIAL FLUTTER, DYSPNEA, PNEUMONITIS ( PN /SULY) 05/20 TREATMENTS: SUPPLEMENTAL OXYGEN (05/17-PRESENT) CHEST/THORAX CTA (05/18) LASIX IV (05/20) Acute Respiratory Failure: ABG pH < 7.35 or > 7.45; Decreased oxygen saturation (<90% room air or < 95% on oxygen); PCO2 > 50 mm Hg; PO2 < 60 mm Hg; Labored or rapid respirations ARDS: Dx Criteria [[place] ARDS]: Respiratory symptoms within one week of a known clinical insult (e.g. shock, infection, surgery, trauma) Bilateral opacities in CXR/Chest CT not due to CHF or fluid THANK YOU! JULIA (This form is maintained as a part of the permanent medical record) 2014 [employer] All Rights Reserved CHYNA [email or web address] [phone] [email or web address]
--- NOTE | 2019-05-21 16:25 | PDOC.BPN ---
- Brief Progress Note Paged by nursing staff and informed the pt is very agitated and would like to leave AMA. Went to speak with pt immediately. She was upset because she was not placed NPO and orders were misunderstood from nursing staff to place pt NPO now by Dr. Boyd , plastic surgeon. She ate lunch and was unable to go for her surgery to have breast implants removed. Dr. Boyd said he would do the surgery at 8 PM due to this, but pt became infuriated with nursing staff and wants to leave the hospital immediately. Stating, " I do not trust the staff at this hospital." I informed the pt of her risk, and the possibility of if she were to leave AMA. She states she is going to [place], as she does not want to have her surgery performed here. I informed the pt that she is at risk of RVR and requiring a dilt GGT, PO dilt and digoxin to maintain her heart rate. She understands the risks/possibility of and refused any further care from our team.
--- NOTE | 2019-05-21 20:54 | PRG ---
DATE OF SERVICE: 05/21/2019 SUBJECTIVE: Ms. Sellers seems to be doing better today. Her breathing has somewhat improved and she denies palpitations. She has converted back to sinus rhythm this morning. OBJECTIVE: VITAL SIGNS: Blood pressure is 138/63, heart rate 91, respirations 18, and temperature 98.2 degrees Fahrenheit. GENERAL: Alert and oriented woman, in no apparent distress. NECK: Supple. Jugular veins not distended. CHEST: Coarse without crackles. HEART: Sounds are regular to rate and rhythm. No murmur or gallop. ABDOMEN: Benign. Bowel sounds positive. EXTREMITIES: Lower extremities without edema, clubbing, or cyanosis. DATABASE: EKG is reviewed revealing typical appearing atrial flutter converting back to sinus rhythm. LABORATORY DATA: White cell count is 19.7, hemoglobin 9.1, platelet count is 574. Sodium 130, potassium 4, BUN is 19, creatinine 0.69. ASSESSMENT AND PLAN: Ms. Sellers is a pleasant 68-year-old woman with history of recurrent atrial arrhythmias who underwent atrial flutter ablation 10/09/2018 who now presented with bronchitis requiring antibiotics. Also noted to have a pus drainage near her breast implants. denies any palpitations. The patient was noted to be intermittently in atrial flutter, which possibly not completely typically in appearance. Dr. Ch seen the patient and rate control was initiated in preparation for potential surgical procedure for her breast implants. Her respiratory status has much improved. At this point, I would continue rate control as noted. The surgical procedure has planned. Continue oral anticoagulation after the surgery if feasible. Long-term consideration for pulmonary venous isolation procedure could be made. We will follow with you. Job ID: [id number]
--- NOTE | 2019-05-22 08:53 | HP ---
CHIEF COMPLAINT: Infected breast implant. HISTORY OF PRESENT ILLNESS: The patient is a 68-year-old female admitted this past week for a combination of infected implant as well as pneumonia and atrial flutter. Please see primary care doctor's as well as Cardiology's notes for further details. Plastic Surgery was consulted for the infected implant. The implants have been present for over 20 years. The patient says that in late March that involved swelling and tenderness consistent with this current infective presentation. Cultures have been done, and Proteus and Pseudomonas have been cultured. CAT scan shows air around the implant PAST MEDICAL HISTORY: Significant for atrial flutter as well as status post ablation, hypertension, heart failure with preserved ejection fraction, depression, candidal esophagitis, diverticulosis, celiac disease, hiatal hernia, breast augmentation, rhinoplasty, and D and C. FAMILY HISTORY: Father with myocardial infarction. SOCIAL HISTORY: The patient denies smoking or alcohol. REVIEW OF SYSTEMS: The patient denies any changes in weight, appetite, sleep, fatigue, fever, or chills. She has shortness of breath,wet cough. She denies palpitations, chest pain, abdominal discomfort, diarrhea, blood in the urine or stools. PHYSICAL EXAMINATION: GENERAL: Well-nourished, well-developed female with audible wet cough but visibly labored breathing BREASTS: Shows a very large left compared to right breast with a draining wound towards inframammary crease. There is no surrounding erythema or induration . IMPRESSION: Infected implant. RECOMMENDATIONS: I feel that the implant needs to be removed. It has grown out Proteus and Pseudomonas. I also have concerns for ALEL. At this point, it is presenting like an infected implant. I will at least evaluate the fluid by flow cytometry I have discussed her care with Dr. Barclay who feels that she is an acceptable risk for her part. Anesthesia's input will obviously be very important in terms of pulmonary status as well and making it through the operation. Today's operation will be simply to get out the implant and sample the fluid. Job ID: [id number] MTDD
== END 2019-05-21 14:30 | disposition left against medical advice (07) | DRG 919 ==
LOC: ERS 23:35 → ERHOLD 05-17 00:31 → 2NO 05-17 13:46
PROVIDERS: ADMIT Family Medicine; ATTEND Family Medicine
DX: T85.79XA Infection and inflammatory reaction due to other internal prosthetic devices, implants and grafts, initial encounter (principal); A41.9 Sepsis, unspecified organism; J96.00 Acute respiratory failure, unspecified whether with hypoxia or hypercapnia; J18.9 Pneumonia, unspecified organism; J81.0 Acute pulmonary edema; E87.1 Hypo-osmolality and hyponatremia; I50.32 Chronic diastolic (congestive) heart failure; I48.92 Unspecified atrial flutter; J90 Pleural effusion, not elsewhere classified; Y83.8 Other surgical procedures as the cause of abnormal reaction of the patient, or of later complication, without mention of misadventure at the time of the procedure; F32.9 Major depressive disorder, single episode, unspecified; Z82.49 Family history of ischemic heart disease and other diseases of the circulatory system; N61.1 Abscess of the breast and nipple; I48.91 Unspecified atrial fibrillation; E87.6 Hypokalemia; R74.0 Nonspecific elevation of levels of transaminase and lactic acid dehydrogenase [LDH]; K90.0 Celiac disease; I11.0 Hypertensive heart disease with heart failure; F41.9 Anxiety disorder, unspecified; B96.4 Proteus (mirabilis) (morganii) as the cause of diseases classified elsewhere; B96.5 Pseudomonas (aeruginosa) (mallei) (pseudomallei) as the cause of diseases classified elsewhere; D64.9 Anemia, unspecified; Z53.29 Procedure and treatment not carried out because of patient's decision for other reasons
CPT/HCPCS: 36415; 71045; 71046; 71275; 80048; 80053; 80202; 81003; 81015; 82607; 82728; 82746; 83540; 83550; 83735; 83935; 84145; 84300; 84443; 84484; 85025; 85027; 85379; 86704; 86705; 86706; 86708; 86709; 86780; 87040; 87070; 87077; 87186; 87205; 87340; 87389; 87521; 93005; 93306; 94640; 96365; 96366; 99292; J0692; J1650; J1940; J2270; J2543; J3370; J3490; J7050; Q0177; Q9967

== ENCOUNTER 2021-06-29 09:08 | Day surgery (SDC) | payer MEDICARE ==
[2021-06-24 10:32] VITALS: BMI 23.0
[2021-06-29] MEDS ORDERED: Heparin 10,000 UNITS/ 10 ML VIAL ONE (11:58)
[2021-06-29] MEDS ORDERED: Isoproterenol 0.2 MG/1 ML AMP ONE (11:58)
[2021-06-29] MEDS ORDERED: Heparin 25,000 units/D5W 500 ML ONE (11:58)
[2021-06-29] MEDS ORDERED: Protamine Sulfate 50 MG/5 ML VIAL ONE ×2 (12:22→16:41)
[2021-06-29] MEDS ORDERED: Phenylephrine 10 MG/ML VIAL ONE (13:01)
[2021-06-29] MEDS ORDERED: Glycopyrrolate 0.2 MG/ML 5 ML SYRINGE ONE (13:19)
[2021-06-29] MEDS ORDERED: Lidocaine 1% PF 5 ML VIAL ONE (13:19)
[2021-06-29] MEDS ORDERED: Rocuronium Bromide 10 MG/ML (10ML VIAL) ONE (13:19)
[2021-06-29] MEDS ORDERED: Ondansetron PF 4 MG/2 ML Vial ONE (13:19)
[2021-06-29] MEDS ORDERED: PROPOFOL 200 MG/20 ML VIAL ONE (13:19)
[2021-06-29] MEDS ORDERED: Acetaminophen 325 MG TAB ONE (17:50)
== END 2021-06-29 20:35 | disposition home or self-care (01) ==
LOC: SDC 09:08
PROVIDERS: ATTEND Internal Medicine Cardiovascular Disease
PROC: B246ZZ4 Ultrasonography of Right and Left Heart, Transesophageal (ICD-10-PCS; principal; 2021-06-29)
PROC: 02583ZZ Destruction of Conduction Mechanism, Percutaneous Approach (ICD-10-PCS; 2021-06-29)
PROC: 02K83ZZ Map Conduction Mechanism, Percutaneous Approach (ICD-10-PCS; 2021-06-29)
PROC: 4A023FZ Measurement of Cardiac Rhythm, Percutaneous Approach (ICD-10-PCS; 2021-06-29)
PROC: 4A0234Z Measurement of Cardiac Electrical Activity, Percutaneous Approach (ICD-10-PCS; 2021-06-29)
DX: I48.0 Paroxysmal atrial fibrillation (principal); I48.92 Unspecified atrial flutter; I11.0 Hypertensive heart disease with heart failure; I50.9 Heart failure, unspecified; I08.1 Rheumatic disorders of both mitral and tricuspid valves; Z79.82 Long term (current) use of aspirin; Z79.899 Other long term (current) drug therapy
CPT/HCPCS: 85347 ×2; 93005; 93312; 93613; 93623; 93656; 93657; 93662; C1732 ×2; C1759; C1760; 93010; J1644; J2370; J2405; J2704; J2720

== ENCOUNTER 2021-07-04 20:43 | Emergency (ER) | payer MEDICARE | END 2021-07-05 00:13 | disposition home or self-care (01) | LOC: ERS 20:43 | DX: I72.4 Aneurysm of artery of lower extremity (principal); I10 Essential (primary) hypertension; I48.92 Unspecified atrial flutter; Z79.899 Other long term (current) drug therapy | CPT/HCPCS: 76936 ==

== ENCOUNTER 2021-07-10 05:58 | Day surgery (SDC) | payer MEDICARE ==
[2021-07-09 15:53] VITALS: BMI 22.6
[2021-07-10 07:41] LABS: SARS-CoV-2 NAA Rapid Test Not Detected (NotDetected)
[2021-07-10 07:46] LABS: #Basophils 0.1 thou/uL (0.0-0.2); #Eosinphils 0.1 thou/uL (0.0-0.7); #Lymphocytes 1.1 thou/uL (1.20-3.40); #Monocytes 0.9 thou/uL (0.11-0.59); #Neutrophils 8.8 thou/uL (1.40-6.50); %Basophils 0.5 % (0.0-1.0); %Eosinophils 1.3 % (0.0-10.0); %Lymphocytes 9.7 % (21.0-51.0); %Neutrophils 80.5 % (42.0-75.0); Hemoglobin 11.8 g/dL (12.0-16.0); Mean Corpuscular HGB CONC 32.4 g/dL (32.0-36.0); Mean Corpuscular Hemoglobin 29.1 pg (27.0-31.0); Mean Corpuscular Volume 89.9 fL (78.0-98.0); Mean Platelet Volume 7.4 fL (7.4-10.4); Platelet Count 347 thou/uL (130-400); RBC Distribution Width 14.4 % (11.5-14.5); Red Blood Cell (RBC) Count 4.05 mill/uL (4.20-5.40); White Blood Cell (WBC) Count 10.9 thou/uL (4.8-10.8)
[2021-07-10] MEDS ORDERED: fentaNYL Citrate/PF 100 MCG/2 ML SYRINGE ONE (09:53)
[2021-07-10] MEDS ORDERED: ceFAZolin (BATCH) 2 GM/100 ML BAG ONE (10:47)
[2021-07-10] MEDS ORDERED: Heparin 5,000 UNITS/ML VIAL ONE (10:55)
[2021-07-10] MEDS ORDERED: Dexamethasone 20 MG/5 ML VIAL ONE (12:25)
[2021-07-10] MEDS ORDERED: ePHEDrine 50 MG/ML VIAL ONE (12:25)
[2021-07-10] MEDS ORDERED: Lidocaine 1% PF 5 ML VIAL ONE (12:25)
[2021-07-10] MEDS ORDERED: Ondansetron PF 4 MG/2 ML Vial ONE (12:25)
[2021-07-10] MEDS ORDERED: PROPOFOL 200 MG/20 ML VIAL ONE (12:25)
[2021-07-10] MEDS ORDERED: Bupivacaine 0.25% 10 ML VIAL ONE (12:36)
[2021-07-10] MEDS ORDERED: EPINEPHrine 1 MG/ML AMP ONE (12:36)
[2021-07-10] MEDS ORDERED: Fentanyl 100 MCG/2 ML VIAL ONE (13:35)
[2021-07-10] MEDS ORDERED: hydrALAZINE 20 MG/ML VIAL ONE (14:03)
[2021-07-10] MEDS ORDERED: HYDROcodone/Acetaminophen 5/325 mg Tablet ONE (14:46)
== END 2021-07-10 16:00 | disposition home or self-care (01) ==
LOC: SDC 05:58
PROVIDERS: ATTEND Thoracic Surgery (Cardiothoracic Vascular Surgery)
PROC: 04LL0ZZ Occlusion of Left Femoral Artery, Open Approach (ICD-10-PCS; principal; 2021-07-10)
DX: I72.4 Aneurysm of artery of lower extremity (principal); I10 Essential (primary) hypertension; Z79.01 Long term (current) use of anticoagulants; Z79.899 Other long term (current) drug therapy; Z20.822 Contact with and (suspected) exposure to COVID-19
CPT/HCPCS: 37799; 85025; C1776; U0002; J0171; J0360; J0690; J1100; J1644; J2405; J2704; J3010; J3490; S0020

== ENCOUNTER 2024-03-20 15:42 | Inpatient (IN) | payer MEDICARE, SELFPAY ==
[2024-03-20] MEDS ORDERED: Ondansetron PF 4 MG/2 ML Vial ONE ×2 (16:07→21:04)
[2024-03-20 16:12] LABS: #Basophils 0.06 10x3/uL (0.0-0.2); %Basophils 0.4 % (0.0-1.0); %Eosinophils 0.2 % (0.0-10.0); %Lymphocytes 6.9 % (21.0-51.0); %Monocytes 3.8 % (0.0-10.0); %Neutrophils 88.3 % (42.0-75.0); Hematocrit 40.9 % (36.0-47.0); Hemoglobin 14.2 g/dL (12.0-16.0); Mean Corpuscular HGB CONC 34.7 g/dL (32.0-36.0); Mean Corpuscular Hemoglobin 31.8 pg (27.0-31.0); Mean Corpuscular Volume 91.5 fL (78.0-98.0); Mean Platelet Volume 10.1 fL (7.4-10.4); Platelet Count 310 10x3/uL (130-400); RBC Distribution Width 12.5 % (11.5-14.5); Red Blood Cell (RBC) Count 4.47 mill/uL (4.20-5.40)
[2024-03-20 16:45] LABS: Troponin I 0.024 ng/mL (< 0.028)
[2024-03-20 16:46] LABS: ALT (SGPT) 77 U/L (8-55); AST (SGOT) 37 U/L (5-34); Albumin 4.4 g/dL (3.4-4.8); Alkaline Phosphatase 118 U/L (40-110); Anion Gap 18 mmol/L (10-20); BUN (Urea Nitrogen) 19 mg/dL (9.8-20.1); Bilirubin, Total 0.8 mg/dL (0.2-1.2); Calc. Creatinine Clearance 0 mL/min (70-130); Calcium 9.9 mg/dL (7.8-10.44); Carbon Dioxide 24 mmol/L (23-31); Chloride 100 mmol/L (98-107); Estimated GFR 75; Globulin 3.3 g/dL (2.4-3.5); Glucose 205 mg/dL (83-110); Potassium 2.9 mmol/L (3.5-5.1); Protein, Total 7.7 g/dL (5.8-8.1); Sodium 139 mmol/L (136-145)
[2024-03-20 16:54] LABS: Lipase 13 U/L (8-78)
[2024-03-20 17:00] LABS: Bacteria/HPF None Seen HPF (None Seen); Bilirubin Negative (Negative); Blood, Urine Negative (Negative); CAUTI Indications for Culture Pelvic or flank pain; Clarity Clear (Clear); Glucose, Urine (Dipstick) 500 mg/dL (Negative); Ketone, Urine 10 mg/dL (Negative); Leukocyte Negative Leu/uL (Negative); Nitrite Negative (Negative); Protein, Urine (Dipstick) 10 mg/dL (Neg-Trace); RBC/HPF None Seen HPF (0-3); Specific Gravity, Urine 1.011 (1.002-1.036); Squamous Epithelial None Seen HPF (0-3); Urobilinogen Normal mg/dL (Less than 2); WBC/HPF None Seen HPF (0-3)
[2024-03-20 17:00] LABS: Magnesium 1.8 mg/dL (1.6-2.6)
[2024-03-20 17:02] LABS: Urine Culture Reflex No No
[2024-03-20] MEDS ORDERED: hydrALAZINE 20 MG/ML VIAL ONE ×2 (17:23→21:26)
[2024-03-20] MEDS ORDERED: Potassium Chloride 20 MEQ TAB ONE (17:23)
[2024-03-20] MEDS ORDERED: Potassium Chloride 20 MEQ (100 mL) BAG ONE (17:24)
[2024-03-20] MEDS ORDERED: Pantoprazole 40 MG VIAL ONE (17:43)
[2024-03-20] MEDS ORDERED: Mag-Al 1200 mg/1200 mg/30 ML UDCUP ONE (21:04)
[2024-03-20] MEDS ORDERED: Lidocaine Viscous Sol 2% 15 ml UD Cup ONE (21:04)
[2024-03-20] MEDS ORDERED: Morphine 2 MG/ML VIAL ONE (21:26)
[2024-03-20] MEDS ORDERED: niCARdipine 25 MG/10 ML SDV ONE (22:09)
[2024-03-20] MEDS ORDERED: Labetalol HCl 100 MG/20 ML VIAL ONE (22:47)
[2024-03-20] MEDS ORDERED: Ondansetron PF 4 MG/2 ML Vial IVP PRN (22:53)
[2024-03-20] MEDS ORDERED: Labetalol HCl 100 MG/20 ML VIAL SLOW IVP PRN (23:01)
[2024-03-20] MEDS ORDERED: Promethazine HCl 25 MG/ML VIAL ONE (23:06)
[2024-03-21 00:09] LABS: Troponin I Less than 0.010 ng/mL (< 0.028)
[2024-03-21 02:20] VITALS: BMI 21.2
[2024-03-21 03:11] LABS: Troponin I 0.022 ng/mL (< 0.028)
[2024-03-21] MEDS: Lactated Ringer's 1,000 ML IV SCH (04:03)
[2024-03-21] MEDS: Potassium Chloride 20 MEQ in Premix 1 BAG IVPB SCH (04:03)
[2024-03-21] MEDS: Promethazine HCl 12.5 MG in Sodium Chloride 0.9% 50 ML IVPB SCH (04:16)
[2024-03-21] MEDS: Magnesium 2 GM/50 ML(in water) 1 GM in Premix 1 BAG IVPB SCH (04:16)
[2024-03-21 04:27] LABS: #Basophils Less than 0.03 10x3/uL (0.0-0.2); #Eosinophils Less than 0.03 10x3/uL (0.0-0.7); %Basophils 0.2 % (0.0-1.0); %Eosinophils 0.1 % (0.0-10.0); %Monocytes 5.4 % (0.0-10.0); %Neutrophils 89.1 % (42.0-75.0); Hematocrit 39.1 % (36.0-47.0); Hemoglobin 13.2 g/dL (12.0-16.0); Mean Corpuscular HGB CONC 33.8 g/dL (32.0-36.0); Mean Corpuscular Hemoglobin 31.7 pg (27.0-31.0); Mean Corpuscular Volume 93.8 fL (78.0-98.0); Mean Platelet Volume 11.8 fL (7.4-10.4); Platelet Count 273 10x3/uL (130-400); RBC Distribution Width 12.8 % (11.5-14.5); Red Blood Cell (RBC) Count 4.17 mill/uL (4.20-5.40)
[2024-03-21] MEDS: Nitroglycerin 2% Ointment 1 INCH/1 GM Packet TOP SCH (04:30)
[2024-03-21 05:00] LABS: ALT (SGPT) 71 U/L (8-55); AST (SGOT) 43 U/L (5-34); Albumin 4.1 g/dL (3.4-4.8); Alkaline Phosphatase 108 U/L (40-110); Anion Gap 18 mmol/L (10-20); BUN (Urea Nitrogen) 22 mg/dL (9.8-20.1); Bilirubin, Total 0.7 mg/dL (0.2-1.2); Calc. Creatinine Clearance 40 mL/min (70-130); Calcium 9.7 mg/dL (7.8-10.44); Carbon Dioxide 20 mmol/L (23-31); Chloride 102 mmol/L (98-107); Estimated GFR 55; Globulin 3.4 g/dL (2.4-3.5); Glucose 126 mg/dL (83-110); Magnesium 1.9 mg/dL (1.6-2.6); Protein, Total 7.5 g/dL (5.8-8.1); Sodium 136 mmol/L (136-145)
[2024-03-21 06:22] LABS: Hemoglobin A1c 5.3 % (4.0-6.0)
[2024-03-21] MEDS ORDERED: Metoclopramide HCl 10 MG (2 mL) VIAL IVP PRN (08:46)
[2024-03-21] MEDS: FLUoxetine HCl 20 MG CAP PO SCH (09:03)
[2024-03-21] MEDS: Lisinopril 20 MG TAB PO SCH (09:03)
[2024-03-21] MEDS: Pantoprazole 40 MG VIAL IVP SCH (09:03)
[2024-03-21] MEDS: Hydrochlorothiazide 25 MG TAB PO SCH (09:04)
[2024-03-21] MEDS ORDERED: Benzocaine/Menthol 1 LOZ LOZ PO PRN (12:48)
[2024-03-21] MEDS: Enoxaparin 40 MG (0.4 mL) SYRINGE SC SCH (21:17)
[2024-03-22 07:32] LABS: #Basophils 0.08 10x3/uL (0.0-0.2); %Basophils 0.8 % (0.0-1.0); %Eosinophils 0.5 % (0.0-10.0); %Lymphocytes 16.9 % (21.0-51.0); %Monocytes 8.1 % (0.0-10.0); %Neutrophils 73.4 % (42.0-75.0); Hematocrit 34.7 % (36.0-47.0); Hemoglobin 11.4 g/dL (12.0-16.0); Mean Corpuscular HGB CONC 32.9 g/dL (32.0-36.0); Mean Corpuscular Hemoglobin 31.7 pg (27.0-31.0); Mean Corpuscular Volume 96.4 fL (78.0-98.0); Platelet Count 229 10x3/uL (130-400); RBC Distribution Width 13.1 % (11.5-14.5)
[2024-03-22 08:00] LABS: ALT (SGPT) 43 U/L (8-55); AST (SGOT) 26 U/L (5-34); Albumin 3.3 g/dL (3.4-4.8); Alkaline Phosphatase 88 U/L (40-110); Anion Gap 9 mmol/L (10-20); BUN (Urea Nitrogen) 19 mg/dL (9.8-20.1); Bilirubin, Total 0.9 mg/dL (0.2-1.2); Calc. Creatinine Clearance 47 mL/min (70-130); Carbon Dioxide 28 mmol/L (23-31); Chloride 105 mmol/L (98-107); Estimated GFR 65; Globulin 2.5 g/dL (2.4-3.5); Glucose 100 mg/dL (83-110); Protein, Total 5.8 g/dL (5.8-8.1); Sodium 138 mmol/L (136-145)
[2024-03-22] MEDS: Polyethylene Glycol 3350 17 GM Packet PO SCH (11:05)
[2024-03-22 13:26] VITALS: BP 152/71; TEMP 97.9
== END 2024-03-22 16:56 | disposition home or self-care (01) | DRG 392 ==
LOC: ERS 15:42 → 2SE 22:57
PROVIDERS: ADMIT Family Medicine; ATTEND Family Medicine
DX: K30 Functional dyspepsia (principal); K44.9 Diaphragmatic hernia without obstruction or gangrene; E87.6 Hypokalemia; I16.0 Hypertensive urgency; I48.0 Paroxysmal atrial fibrillation; F41.9 Anxiety disorder, unspecified; F32.A Depression, unspecified; K59.00 Constipation, unspecified; Z79.899 Other long term (current) drug therapy; Z87.890 Personal history of sex reassignment; Z91.119 Patient's noncompliance with dietary regimen due to unspecified reason; Z87.19 Personal history of other diseases of the digestive system
CPT/HCPCS: 36415; 36416; 71045; 74018; 74177; 80053; 81001; 83036; 83690; 83735; 84443; 84484; 85025; 93005; 96361; 96374; 96375; 96376; J0360; J1650; J2272; J2405; J2470; J2550; J3475; J3480; J7120